=== PATIENT | male | born 1960 | race Caucasian/White ===

== ENCOUNTER 2020-02-03 09:13 | Outpatient (REF) | payer OTHER, SELFPAY ==
[2020-02-03 09:54] LABS: MANUAL DIFF FLAG NO
[2020-02-03 10:01] LABS: Basophils Absolute Auto 0.1 X10*3/uL (0.0-0.2); Basophils Percent Auto 0.7 % (0-2); Eosinophils Absolute Auto 0.3 X10*3/uL (0.0-0.4); Eosinophils Percent Auto 4.4 % (0-4); Hemoglobin 15.8 g/dl (14.0-18.0); Imm Gran Abs Auto 0.04 X10*3/uL (0.00-0.03); Imm Gran Pct Auto 0.6 % (0.0-0.4); Lymphocytes Absolute Auto 1.8 X10*3/uL (1.2-4.9); Lymphocytes Percent Auto 25.9 % (20-40); Mean Corpuscular HGB Conc 35.9 g/dl (31.0-36.0); Mean Corpuscular Hemoglobin 32.5 pg (27.0-33.0); Mean Corpuscular Volume 90.5 fL (80-98); Mean Platelet Volume 9.5 fL (9.4-12.4); Monocytes Absolute Auto 0.5 X10*3/uL (0.1-1.2); Neutrophils Absolute Auto 4.2 X10*3/uL (2.0-8.3); Neutrophils Percent Auto 61.4 % (45-73); Platelet Count 219 X10*3/uL (160-400); Red Blood Count 4.86 X10*6/uL (4.60-5.80); Red Cell Distribution Width 11.8 % (11.0-16.0); White Blood Count 6.8 X10*3/uL (4.8-10.8)
[2020-02-03 10:29] LABS: Alanine Aminotransferase 54 U/L (0-40); Albumin Level 4.8 g/dL (3.5-5.0); Alkaline Phosphatase 72 U/L (39-117); Aspartate Amino Transferase 32 U/L (5-37); Blood Urea Nitrogen 13 mg/dL (9-16); Cholesterol 180 mg/dL; Estimated Glomerular Filt Rate > 60; Glucose Fasting 97 mg/dL (60-99); HDL Cholesterol 40 mg/dL; LDL Cholesterol Calculated 104 mg/dl; Total Protein 7.2 g/dL (6.5-8.0); Triglycerides 183 mg/dL
[2020-02-03 10:39] LABS: Anion Gap 14 (12-20); Calcium 9.5 mg/dL (8.4-10.2); Carbon Dioxide 25 mmol/L (22-29); Chloride 106 mmol/L (96-108); Potassium 5.7 mmol/l (3.3-5.1); Sodium 139 mmol/L (135-145)
[2020-02-03 10:46] LABS: Prostate Specific Antigen 0.38 ng/mL (<0.05-4.0)
== END 2020-02-03 09:14 | disposition home or self-care (01) ==
LOC: HO.LAB 09:13
PROVIDERS: PCP Internal Medicine; Visit Provider Internal Medicine
DX: Z00.00 Encounter for general adult medical examination without abnormal findings (principal); Z12.5 Encounter for screening for malignant neoplasm of prostate
CPT/HCPCS: 36415; 80053; 80061; 84153; 85025

== ENCOUNTER 2020-02-15 08:12 | Outpatient (REF) | payer OTHER, SELFPAY ==
[2020-02-15 11:12] LABS: Anion Gap 12 (12-20); Blood Urea Nitrogen 15 mg/dL (9-16); Calcium 9.3 mg/dL (8.4-10.2); Carbon Dioxide 24 mmol/L (22-29); Chloride 107 mmol/L (96-108); Estimated Glomerular Filt Rate > 60; Glucose Random 94 mg/dL (60-115); Potassium 4.7 mmol/l (3.3-5.1); Sodium 138 mmol/L (135-145)
== END 2020-02-15 08:13 | disposition home or self-care (01) ==
LOC: HO.LAB 08:12
PROVIDERS: PCP Internal Medicine; Visit Provider Internal Medicine
DX: I10 Essential (primary) hypertension (principal); E87.5 Hyperkalemia
CPT/HCPCS: 80048

== ENCOUNTER 2020-10-10 08:25 | Outpatient (REF) | payer OTHER, SELFPAY ==
[2020-10-10 09:00] LABS: MANUAL DIFF FLAG NO
[2020-10-10 09:08] LABS: Basophils Absolute Auto 0.1 X10*3/uL (0.0-0.2); Basophils Percent Auto 0.7 % (0-2); Eosinophils Absolute Auto 0.6 X10*3/uL (0.0-0.4); Eosinophils Percent Auto 8.5 % (0-4); Hematocrit 44.3 % (42-52); Hemoglobin 15.8 g/dl (14.0-18.0); Imm Gran Abs Auto 0.04 X10*3/uL (0.00-0.03); Imm Gran Pct Auto 0.6 % (0.0-0.4); Lymphocytes Percent Auto 29.1 % (20-40); Mean Corpuscular HGB Conc 35.7 g/dl (31.0-36.0); Mean Corpuscular Hemoglobin 31.9 pg (27.0-33.0); Mean Corpuscular Volume 89.3 fL (80-98); Mean Platelet Volume 9.7 fL (9.4-12.4); Monocytes Absolute Auto 0.5 X10*3/uL (0.1-1.2); Monocytes Percent Auto 6.7 % (2-11); Neutrophils Absolute Auto 3.7 X10*3/uL (2.0-8.3); Neutrophils Percent Auto 54.4 % (45-73); Platelet Count 195 X10*3/uL (160-400); Red Blood Count 4.96 X10*6/uL (4.60-5.80); Red Cell Distribution Width 12.1 % (11.0-16.0); White Blood Count 6.7 X10*3/uL (4.8-10.8)
[2020-10-10 09:25] LABS: Alanine Aminotransferase 39 U/L (0-40); Albumin Level 4.8 g/dL (3.5-5.0); Alkaline Phosphatase 74 U/L (39-117); Anion Gap 12 (12-20); Aspartate Amino Transferase 33 U/L (5-37); Bilirubin Total 1.5 mg/dL (0.0-1.0); Blood Urea Nitrogen 15 mg/dL (9-16); Carbon Dioxide 27 mmol/L (22-29); Chloride 106 mmol/L (96-108); Estimated Glomerular Filt Rate > 60; Glucose Random 104 mg/dL (60-115); Potassium 5.2 mmol/L (3.3-5.1); Sodium 140 mmol/L (135-145); Total Protein 7.3 g/dL (6.5-8.0)
== END 2020-10-10 08:26 | disposition home or self-care (01) ==
LOC: HO.LAB 08:25
PROVIDERS: PCP Internal Medicine; Visit Provider Internal Medicine
DX: I10 Essential (primary) hypertension (principal); K21.9 Gastro-esophageal reflux disease without esophagitis; E78.5 Hyperlipidemia, unspecified
CPT/HCPCS: 36415; 80053; 85025

== ENCOUNTER 2020-12-26 09:02 | Outpatient (REF) | payer OTHER, SELFPAY ==
[2020-12-26 09:57] LABS: COVID-19 Test Positive (Negative)
== END 2020-12-26 09:03 | disposition home or self-care (01) ==
LOC: HO.LAB 09:02
PROVIDERS: Visit Provider Internal Medicine
DX: Z20.822 Contact with and (suspected) exposure to COVID-19 (principal)
CPT/HCPCS: 36415; 87635; C9803

== ENCOUNTER 2021-05-08 07:06 | Day surgery (SDC) | payer OTHER, SELFPAY ==
--- NOTE | 2021-05-07 14:21 | HO.ANESPROP2 ---
Documented by User: Rosa Isela Joseph NP 05/07/21 14:22 HPI - Anesthesia Eval Consult details Narrative: 60yo M for Colonoscopy [facility] Past Medical History Medical History GERD (gastroesophageal reflux disease) HTN (hypertension) Surgical History Surgical History Hx of colonoscopy Social History Social History Patient Tobacco Use Status: Never used Tobacco Have you been hit, kicked, punched, or otherwise hurt by someone within the past year? If so, by whom?: No Are you DNR?: No Advance Directives: No Advance Directives Information Provided: Yes Meds Allergies Allergy/AdvReac Type Severity Reaction Status Date / Time No Known Allergies Allergy Verified 05/07/21 08:05 Home Medications Medication Instructions Recorded Confirmed Last Taken Type lisinopril 5 mg tablet mg 05/07/21 05/07/21 05/08/21 History omeprazole magnesium 20 mg mg PO 05/07/21 05/07/21 Unknown History tablet,delayed release (Prilosec OTC) Exam Exam Date and Time: May 07, 2021 142 Assessment and Plan Assessment Anesthesia Assessment: Chart Reviewed Documented by User: Leslie Dalal MD 05/08/21 07:37 [facility] Past Medical History Medical History GERD (gastroesophageal reflux disease) HTN (hypertension) Family History Family history of problems with anesthesia: No Surgical History Surgical History Hx of colonoscopy History of Problems with Anesthesia: No Social History Social History Patient Tobacco Use Status: Never used Tobacco Have you been hit, kicked, punched, or otherwise hurt by someone within the past year? If so, by whom?: No Are you DNR?: No Advance Directives: No Advance Directives Information Provided: Yes Meds Allergies Allergy/AdvReac Type Severity Reaction Status Date / Time No Known Allergies Allergy Verified 05/07/21 08:05 Home Medications Medication Instructions Recorded Confirmed Last Taken Type lisinopril 5 mg tablet mg 05/07/21 05/07/21 05/08/21 History omeprazole magnesium 20 mg mg PO 05/07/21 05/07/21 Unknown History tablet,delayed release (Prilosec OTC) Exam Airway Mallampati Class: II TM Dist: >3cm Neck ROM: Full Heart: RRR Lungs: CTA Assessment and Plan Final Anesthetic Review Family History of Problems with Anesthesia: No History of Problems with Anesthesia: No NPO: Yes ASA Class: II Final Preanesthetic Review: No Changes in Pt Med Stat, Meds/Allgs Chart Reviewed, Consent Obtained/Reviewed and Anes Risks/Benef Reviewed Patient Risk: Low Procedure Risk: Low Anesthetic Plan Anesthetic Plan: MAC: Disposition: Standard PACU
[2021-05-08 07:10] VITALS: BP 137/88; PULSE 63; RESP 17; TEMP 36.6; O2SAT 97; BMI 26.6
[2021-05-08] MEDS: Lactated Ringers 1,000 ML 100 ML IVCONT (07:45)
--- NOTE | 2021-05-08 08:06 | MHC.SHP ---
Pre-Procedural Eval Section A Date of Service: 05/08/21 Section B Chief Complaint: Screening Details of Present Illness: see H&P no changes Relevant Family History (Specify if Yes): No Relevant Social History: None Present Medications: see Short Stay Collaborative assessment Medical History: No relevant PMH History of Previous Operations: No relevant previous surgery Allergies: Allergies Allergy/AdvReac Type Severity Reaction Status Date / Time No Known Allergies Allergy Verified 05/07/21 08:05 Review of Systems Sugical H&P ROS: Negative: Constitution, Cardiovascular, Respiratory, Neurological, Psychiatric, Hem-Onc, Allergic/Immunologic, Gastrointestinal, Genitourinary, Musculoskeletal, Integumentary, Endocrine and Eyes/Ears/Nose/Throat Exam Surgical H&P Exam: Normal: HEENT, Normal: Heart, Normal: Lungs, Normal: Extremities, Normal: Abdomen, Normal: Skin and Normal: Neurological Plan Diagnosis/Plan: Unchanged I have reviewed the history and physical and performed a pertinent physical examination on my patient. No changes have occurred unless specified.
--- NOTE | 2021-05-08 08:37 | PM.OP ---
Brief Operative Note Date of Service: 05/08/21 Pre-op diagnosis: screening Post-op diagnosis: same (colon polyp) Procedure: colonosocpy Surgeon: Oliverio Petersen Anesthesia: MAC Was an Reading Interventionist used for this Procedure?: No Estimated blood loss (mL): 2 Pathology: other (polyp 65 cm) Condition: stable Disposition: PACU
[2021-05-08 08:39] VITALS: BP 100/67; PULSE 72; RESP 20; TEMP 36.4; O2SAT 98
[2021-05-08 08:54] VITALS: BP 128/83; PULSE 66; RESP 17; TEMP 36.4; O2SAT 98
--- NOTE | 2021-05-08 09:13 | OP_ITS ---
SURGEON: Oliverio Petersen MD INDICATIONS: Colon cancer screening. PREOPERATIVE DIAGNOSIS: POSTOPERATIVE DIAGNOSIS: PROCEDURE PERFORMED: ESTIMATED BLOOD LOSS: COMPLICATIONS: ANESTHESIA: ASSISTANTS: SPECIMENS: PROCEDURE: Colonoscopy to the terminal ileum with biopsy. MEDICATIONS: Monitored anesthesia care. DESCRIPTION OF PROCEDURE: History and physical performed. The risks and benefits of the procedure were explained to the patient. Informed consent was obtained. The patient was placed in the left lateral decubitus position. A digital rectal exam was performed and it was found to be normal. The Olympus pediatric video colonoscope was introduced into the rectum and advanced to the cecum without difficulty. The cecum was identified by transillumination, palpation, and identification of the ileocecal valve. Examination was performed. The scope was removed. He tolerated the procedure well and was taken to Recovery in stable condition. FINDINGS: The terminal ileum was examined and appeared normal. The visualized colonic mucosa was normal. The quality of the prep was good. At 65 cm from the anal verge was a less than 5 mm sessile polyp, which was removed with biopsy forceps. No other polyps were identified. Retroflexed examination showed some small internal hemorrhoids. IMPRESSION: Colon polyp. RECOMMENDATIONS: Follow up the biopsy results. MD ASIA Mayen/RONY / [id number]
--- NOTE | 2021-05-08 12:51 | HO.POSTANES ---
Post Anesthesia Evaluation Post Anesthesia Evaluation Vital Signs: Vital Signs Temp Pulse Resp BP Pulse Ox 05/08/21 08:54 97.6 F 66 17 128/83 98 05/08/21 08:39 97.6 F 72 20 100/67 98 05/08/21 07:10 98 F 63 17 137/88 97 Anesthesia: Monitored Mental Status: Awake Pain Control: Satisfactory Nausea/Vomiting: None Hydration: Adequate Anesthesia-Related Issues: No Anes. Related Issues
== END 2021-05-08 09:23 | disposition home or self-care (01) ==
PROVIDERS: PCP Internal Medicine; Visit Provider Internal Medicine Gastroenterology
PROC: 0DJD8ZZ Inspection of Lower Intestinal Tract, Via Natural or Artificial Opening Endoscopic (ICD-10-PCS; CPT 45378; principal; 2021-05-08 08:10)
DX: Z12.11 Encounter for screening for malignant neoplasm of colon (principal); K63.5 Polyp of colon; K64.8 Other hemorrhoids; K21.9 Gastro-esophageal reflux disease without esophagitis; I10 Essential (primary) hypertension; J30.2 Other seasonal allergic rhinitis; Z79.899 Other long term (current) drug therapy
CPT/HCPCS: 45380; 88305

== ENCOUNTER 2022-03-05 09:21 | Outpatient (REF) | payer OTHER, SELFPAY ==
[2022-03-05 09:46] LABS: MANUAL DIFF FLAG NO
[2022-03-05 10:12] LABS: Basophils Absolute Auto 0.1 X10*3/uL (0.0-0.2); Basophils Percent Auto 1.1 % (0-2); Eosinophils Absolute Auto 0.3 X10*3/uL (0.0-0.4); Hemoglobin 16.3 g/dl (14.0-18.0); Imm Gran Abs Auto 0.02 X10*3/uL (0.00-0.03); Imm Gran Pct Auto 0.3 % (0.0-0.4); Lymphocytes Absolute Auto 1.9 X10*3/uL (1.2-4.9); Lymphocytes Percent Auto 30.2 % (20-40); Mean Corpuscular HGB Conc 35.4 g/dl (31.0-36.0); Mean Corpuscular Hemoglobin 32.5 pg (27.0-33.0); Mean Corpuscular Volume 91.6 fL (80.0-98.0); Monocytes Absolute Auto 0.5 X10*3/uL (0.1-1.2); Monocytes Percent Auto 7.3 % (2-11); Neutrophils Absolute Auto 3.6 x10*3/uL (2.0-8.3); Neutrophils Percent Auto 57.1 % (45-73); Platelet Count 207 X10*3/uL (160-400); Red Blood Count 5.02 X10*6/uL (4.60-5.80); Red Cell Distribution Width 11.9 % (11.0-16.0); White Blood Count 6.3 X10*3/uL (4.8-10.8)
[2022-03-05 10:59] LABS: Alanine Aminotransferase 53 U/L (0-40); Alkaline Phosphatase 74 U/L (39-117); Anion Gap 16 (12-20); Aspartate Amino Transferase 37 U/L (5-37); Bilirubin Total 0.8 mg/dL (0.0-1.0); Blood Urea Nitrogen 15 mg/dL (9-16); Calcium 9.9 mg/dL (8.4-10.2); Carbon Dioxide 22 mmol/L (22-29); Chloride 105 mmol/L (96-108); Cholesterol 203 mg/dL; Estimated Glomerular Filt Rate > 60; Glucose Fasting 102 mg/dL (60-99); HDL Cholesterol 42 mg/dL; LDL Cholesterol Calculated 124 mg/dl; Sodium 138 mmol/L (135-145); Total Protein 7.5 g/dL (6.5-8.0); Triglycerides 186 mg/dL
[2022-03-05 11:02] LABS: Prostate Specific Antigen 0.59 ng/mL (<0.05-4.0)
== END 2022-03-05 09:22 | disposition home or self-care (01) ==
LOC: HO.LAB 09:21
PROVIDERS: PCP Internal Medicine; Visit Provider Internal Medicine
DX: Z00.00 Encounter for general adult medical examination without abnormal findings (principal); Z12.5 Encounter for screening for malignant neoplasm of prostate
CPT/HCPCS: 36415; 80053; 80061; 84153; 85025

== ENCOUNTER 2022-03-29 12:52 | Outpatient (REF) | payer OTHER, SELFPAY ==
--- NOTE | ~2022-03-29 | XR_ITS ---
EXAMINATION: XR HIP, RIGHT CLINICAL INFORMATION: Right hip pain. COMPARISON: 02/27/2015 TECHNIQUE: Two views of the right hip. FINDINGS: There is no evidence of acute fracture or dislocation of the right hip. The right hip joint space is maintained. There is a similar appearance to study of 03/01/2015. Calcification is seen about the superior lateral acetabulum which may represent secondary ossification center or possibly calcified labrum. No destructive bony lesions identified. No evidence of femoral head collapse. XR/XR hip RT min 2V IMPRESSION: Stable appearance of the right hip compared to study of 03/01/2015 without significant joint space narrowing.
== END 2022-03-29 12:53 | disposition home or self-care (01) ==
LOC: HO.XRAY 12:52
PROVIDERS: PCP Internal Medicine; Visit Provider Internal Medicine
DX: M25.551 Pain in right hip (principal)
CPT/HCPCS: 73502

== ENCOUNTER 2022-05-17 14:49 | Outpatient (REF) | payer OTHER, SELFPAY ==
--- NOTE | ~2022-05-17 | XR_ITS ---
EXAMINATION: XR HIP, RIGHT CLINICAL INFORMATION: Pain. COMPARISON: Radiograph of the right hip 03/29/2022. TECHNIQUE: Two views of the right hip. FINDINGS: No acute fracture or malalignment. Stable well-corticated calcific/ossific bodies adjacent to the lateral superior right acetabulum. Mild to moderate bilateral degenerative osteophyte arthritis in the hips with joint space narrowing and subcortical sclerosis. SI joints are symmetric. Pubic symphysis is maintained. Pelvic phleboliths are noted. XR/XR hip RT w PEL1V IMPRESSION: 1. No acute fracture or malalignment. 2. Unchanged prominent calcific/ossific bodies in the right superolateral acetabulum. 3. Mild to moderate osteoarthritis of both hips.
== END 2022-05-17 14:50 | disposition home or self-care (01) ==
LOC: HO.HOSX 14:49
PROVIDERS: Visit Provider Physician Assistant
DX: M16.11 Unilateral primary osteoarthritis, right hip (principal)
CPT/HCPCS: 73502

== ENCOUNTER → 2022-07-03 14:54 | Outpatient (BNVA) | payer OTHER, SELFPAY | PROVIDERS: PCP Internal Medicine; Visit Provider Anesthesiology | DX: Z13.89 Encounter for screening for other disorder (principal) ==

== ENCOUNTER 2022-07-22 17:00 | Outpatient (RCR) | payer OTHER, SELFPAY ==
--- NOTE | 2022-08-12 15:43 | MHC.PT.DC ---
[facility] [place] Office [place] [facility] [place] Office [address] [phone] F: [phone] F: [phone] F: [phone] F: [phone] Physical Therapy Discharge Report Diagnosis: RIGHT HIP AND LOW BACK PAIN Date of Surgery: N/A Date of Evaluation: 06/18/22 Date of Discharge: 07/23/22 Treatments to Date: 4 Cancellations to Date: 5 No Shows to Date: 0 Discharge Status: Visit Non-compliance Discharge Summary: AARON CANCELLED 5 VISITS, INCLUDING LAST SCHEDULED VISIT WITH PT. HE IS SCHEDULED FOR CONSULT WITH PAIN MANAGEMENT. Electronically signed by: CASSI SONG PT, DPT Please sign and return to therapist. Thank you for your referral.
== END 2022-08-12 15:43 | disposition home or self-care (01) ==
LOC: HO.PT 17:00
PROVIDERS: PCP Internal Medicine; Visit Provider Physician Assistant
DX: M16.11 Unilateral primary osteoarthritis, right hip (principal)
CPT/HCPCS: 97110; 97161

== ENCOUNTER 2022-08-13 05:57 | Outpatient (REF) | payer OTHER, SELFPAY ==
--- NOTE | ~2022-08-13 | FL_ITS ---
EXAMINATION: XR FLUOROSCOPY WITH IMAGES CLINICAL INFORMATION: Right hip osteoarthritis. COMPARISON: 05/17/2022. TECHNIQUE: Fluoroscopy Supervised By: Dr. Isaak Polk. Fluoroscopy Time: 0.2 minutes. Cumulative Dose: 5.96 mGy. DAP: 1.62 Gycm2. Images: 3. FINDINGS: 3 views demonstrate needle overlying the superior aspect of the right hip joint with some contrast seen between what appears to be calcified labral tear in a superior acetabulum. FL/FL guidance in treatment room IMPRESSION: Intraoperative fluoroscopy for pain management procedure.
== END 2022-08-13 05:58 | disposition home or self-care (01) ==
LOC: CF 05:57
PROVIDERS: Visit Provider Anesthesiology
DX: M16.11 Unilateral primary osteoarthritis, right hip (principal)
CPT/HCPCS: 20610; J3301

== ENCOUNTER → 2022-09-25 14:57 | Outpatient (BNVA) | payer OTHER, SELFPAY | PROVIDERS: PCP Internal Medicine; Visit Provider Anesthesiology ==

== ENCOUNTER 2023-01-30 08:37 | Outpatient (REF) | payer OTHER, SELFPAY ==
[2023-01-30 08:53] LABS: MANUAL DIFF FLAG NO
[2023-01-30 09:23] LABS: Basophils Absolute Auto 0.1 X10*3/uL (0.0-0.2); Basophils Percent Auto 1.2 % (0-2); Eosinophils Absolute Auto 0.2 X10*3/uL (0.0-0.4); Eosinophils Percent Auto 2.7 % (0-4); Hematocrit 49.3 % (42.0-52.0); Hemoglobin 17.1 g/dl (14.0-18.0); Imm Gran Abs Auto 0.04 X10*3/uL (0.00-0.03); Imm Gran Pct Auto 0.5 % (0.0-0.4); Lymphocytes Absolute Auto 1.4 X10*3/uL (1.2-4.9); Lymphocytes Percent Auto 18.9 % (20-40); Mean Corpuscular HGB Conc 34.7 g/dl (31.0-36.0); Mean Corpuscular Hemoglobin 32.1 pg (27.0-33.0); Mean Corpuscular Volume 92.7 fL (80.0-98.0); Mean Platelet Volume 10.1 fL (9.4-12.4); Monocytes Absolute Auto 0.5 X10*3/uL (0.1-1.2); Monocytes Percent Auto 7.2 % (2-11); Neutrophils Absolute Auto 5.2 x10*3/uL (2.0-8.3); Neutrophils Percent Auto 69.5 % (45-73); Platelet Count 224 X10*3/uL (160-400); Red Blood Count 5.32 X10*6/uL (4.60-5.80); Red Cell Distribution Width 12.2 % (11.0-16.0); White Blood Count 7.5 X10*3/uL (4.8-10.8)
[2023-01-30 09:32] LABS: Alanine Aminotransferase 44 U/L (0-40); Albumin Level 4.8 g/dL (3.5-5.0); Alkaline Phosphatase 73 U/L (39-117); Anion Gap 11 (12-20); Aspartate Amino Transferase 30 U/L (5-37); Bilirubin Total 0.9 mg/dL (0.0-1.0); Blood Urea Nitrogen 15 mg/dL (9-16); Calcium 9.9 mg/dL (8.4-10.2); Carbon Dioxide 24 mmol/L (22-29); Chloride 108 mmol/L (96-108); Estimated Glomerular Filt Rate > 60; Glucose Fasting 110 mg/dL (60-99); Potassium 5.3 mmol/L (3.3-5.1); Sodium 138 mmol/L (135-145); Total Protein 7.5 g/dL (6.5-8.0)
[2023-01-30 09:55] LABS: Prostate Specific Antigen Scr 0.72 ng/mL (<0.05-4.0)
== END 2023-01-30 08:38 | disposition home or self-care (01) ==
LOC: HO.LAB 08:37
PROVIDERS: PCP Internal Medicine; Visit Provider Internal Medicine
DX: Z12.5 Encounter for screening for malignant neoplasm of prostate (principal); I10 Essential (primary) hypertension; M54.9 Dorsalgia, unspecified; K21.9 Gastro-esophageal reflux disease without esophagitis; R35.1 Nocturia
CPT/HCPCS: 36415; 80053; 84153; 85025

== ENCOUNTER 2023-02-04 07:05 | Outpatient (REF) | payer OTHER, SELFPAY ==
[2023-02-04 07:48] LABS: Estimated Average Glucose 94 mg/dL; Hemoglobin A1c % 4.9 % (<6.0)
[2023-02-04 09:06] LABS: Anion Gap 12 (12-20); Blood Urea Nitrogen 16 mg/dL (9-16); Calcium 9.4 mg/dL (8.4-10.2); Carbon Dioxide 22 mmol/L (22-29); Chloride 109 mmol/L (96-108); Cholesterol 202 mg/dL (<200); Estimated Glomerular Filt Rate > 60; Glucose Random 104 mg/dL (60-115); Magnesium 2.3 mg/dL (1.6-2.6); Potassium 4.7 mmol/L (3.3-5.1); Sodium 138 mmol/L (135-145)
[2023-02-04 09:20] LABS: Free T4 (Free Thyroxine) 0.81 ng/dL (0.71-1.85)
== END 2023-02-04 07:06 | disposition home or self-care (01) ==
LOC: HO.LAB 07:05
PROVIDERS: PCP Internal Medicine; Visit Provider Internal Medicine
DX: I48.91 Unspecified atrial fibrillation (principal); I10 Essential (primary) hypertension; K21.9 Gastro-esophageal reflux disease without esophagitis; R73.9 Hyperglycemia, unspecified
CPT/HCPCS: 36415; 80048; 82465; 83036; 83735; 84439; 84443

== ENCOUNTER 2023-02-05 08:52 | Outpatient (AMB) | payer OTHER, SELFPAY ==
--- NOTE | 2023-02-05 09:00 | A.OFFVIS_ITS ---
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 However he remains in good functional capacity and walks every day [address] 18 hole golf and does other forms of exercise as although with symptoms of shortness of breath and fatigue. However more recently noticed some palpitation for couple weeks and recently had an office visit with you on a general annual visit at which time was noted to have irregular pulse and subsequent EKG confirming findings of atrial fibrillation he was referred here. He has been started on oral anticoagulation with Eliquis 5 mg b.i.d., started 2 days ago. He has longstanding history of hypertension which as per him is well managed. He does live with stressful life. However he denies any sleep symptoms although may have poor sleep pattern. Denies any orthopnea, PND, leg edema. Denies any chest pain. Denies any lightheadedness, syncope. No bleeding issues or neurologic events. 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 Review of Systems Const Denies chills, Denies daytime sleepiness, Denies fatigue, Denies fever(s), Den ies frequent falls, Denies poor appetite, Denies snoring, Denies stops breathing during sleep, Denies weakness, Denies weight gain and Denies weight loss Eyes Denies loss of vision ENT Denies dizziness and Denies hearing loss Card Denies chest pain, Denies claudication, Denies leg edema, Denies lightheadedness, Denies palpitations, Denies dyspnea, Denies dyspnea on exertion and Denies orthopnea Resp Denies cough, Denies excessive phlegm production, Denies dyspnea, Denies dyspnea on exertion, Denies snoring and Denies wheezing GI Denies abdominal pain, Denies hematochezia, Denies change in bowel habits, Denies nausea and Denies vomiting Denies dysuria and Denies urinary frequency Musc Denies arthralgias, Denies muscle weakness, Denies numbness and Denies other (frequent falls) Skin/Breast Denies nail changes and Denies rash Neuro Denies Abnormal speech present, Denies dizziness, Denies frequent falls, Denies loss of vision, Denies memory loss, Denies numbness and Denies weakness Psych Denies depression and Denies memory loss Endo Denies fatigue and Denies palpitations Elijah/Lymph Reports easy bruising and Reports other (anemia) Aller/Immun Denies wheezing Physical Exam Vital Signs: Last Vital Signs Pulse 72 02/05/23 09:01 BP 120/80 02/05/23 09:01 BMI result Body Mass Index 26.9 Const General: cooperative, comfortable, no acute distress, well developed, alert, awake, Physically active and well groomed Nutritional Appearance: average body habitus and well nourished Orientation/consciousness: patient oriented x3 Limitations: no limitations HEENT Head: Yes normocephalic and Yes atraumatic Neck Neck: Yes trachea midline, Yes supple and Yes no JVD Resp Effort & Inspection: normal respiratory effort Auscultation: clear to auscultation bilaterally Cardio Jugular venous distension: no JVD Rhythm: abnormal rhythm irregularly irregular Heart sounds: S1 normal heart sound present, S2 normal heart sound present, no click, no gallops, no murmurs and no rubs GI Auscultation: normal bowel sounds Skin General skin exam: no rashes or lesions noted Neuro General: patient oriented x3 and no focal motor deficits Speech: No Abnormal speech present Extrem General: Yes no clubbing, cyanosis or edema Office Procedures EKG Details: EKG shows atrial fibrillation at 72 beats per minute [id number], Complete Assessment & Plan Assessment & Plan (1) Persistent atrial fibrillation: Code(s): I48.19 - Other persistent atrial fibrillation Plan: Persistent rate control atrial fibrillation, recently detected most likely need new onset with symptoms of exertional shortness of breath fatigue although the symptoms have been present for many years. He has no signs or symptoms of congestive heart failure. His TSH is within normal limits. He has been appropriately started on oral anticoagulation therapy with Eliquis. Most likely cause of atrial fibrillation is hypertension related left atrial changes. Will need to obtain echocardiogram to assess for the same. The possibility includes undiagnosed sleep apnea. Need to do home sleep study for the same. Will also suggest a Holter monitor for adequate rate control. I had a very long discussion about pathophysiology of atrial fibrillation management. Although recent data suggest in new onset recent persistent atrial fibrillation should pursue rhythm control approach as much as possible especially given his age and his activity level to reduce long-term risk of cardiovascular complications including congestive heart failure. ST use of antiarrhythmic drug will be decided based on the findings on echocardiogram, if he has significant left atrial enlargement will probably prescribed antiarrhythmic drug prior to synchronized cardioversion. We discussed about synchronized cardioversion details including risk, benefits, alternatives. He understands agrees. Given unknown duration of atrial fibrillation will wait at least 3-3 and half weeks prior to performing synchronized cardioversion. He understands management well. Will follow up in the clinic after synchronized cardioversion. Thank you for allowing me to partake in his care Coding Level of Care Code New Pt Level 4 (77987) Diagnoses Persistent atrial fibrillation I48.19 CPT Codes EKG - CPT: 36195-[id number], Complete ([id number])
[2023-02-05 09:01] VITALS: BP 120/80; PULSE 72; BMI 26.9
== END 2023-02-05 09:38 | disposition home or self-care (01) ==
PROVIDERS: PCP Internal Medicine; Visit Provider Internal Medicine Cardiovascular Disease
DX: I48.19 Other persistent atrial fibrillation (principal)
CPT/HCPCS: 93010; 99204

== ENCOUNTER → 2023-02-05 08:52 | Outpatient (BNVA) | payer OTHER, SELFPAY | PROVIDERS: PCP Internal Medicine; Visit Provider Internal Medicine Cardiovascular Disease | DX: I48.19 Other persistent atrial fibrillation (principal) | CPT/HCPCS: 93005 ==

== ENCOUNTER → 2023-02-18 08:56 | Outpatient (REF) | payer OTHER, SELFPAY ==
--- NOTE | 2023-02-18 09:03 | CA_ITS ---
Transthoracic Echocardiogram Patient (Last, First, Middle): Ga Velásquez A Gender: Male Date of : 1960 Age: 62 Procedure Date: 02/18/2023 Procedure Type: Transthoracic Echocardiogram Location: OP Height: 170.18 cm Weight: 77.11 kg BSA: 1.89 m2 Heart Rate: bpm BP: 110 / 75 mmHg Power Plant Engineer: INÉS Referring MD: Mariano Baldwin MD Symptoms: I48.19 - Other persistent atrial fibrillation Study Quality: Fair ECG Rhythm: Atrial Fibrillation Conclusions: - The left ventricular systolic function is normal. The calculated ejection fraction is 67% by biplane method - The left atrium is severely dilated. - There is severe calcification of the aortic valve. There is mild aortic valve stenosis. Findings Left Ventricle Normal left ventricular cavity size. There is severely increased left ventricular wall thickness. The left ventricular systolic function is normal. The calculated ejection fraction is 67% by biplane method. There is no evidence of regional wall motion abnormalities. Diastolic function is indeterminate on the basis of available data. Right Ventricle Normal right ventricular cavity size and systolic function. Atria The left atrium is severely dilated. The right atrium is normal in size. Aortic Valve There is severe calcification of the aortic valve. There is mild aortic valve stenosis. The peak aortic velocity is 2.26 m/s with a calculated peak gradient of 20 mmHg. The mean gradient is 11 mmHg. The aortic valve area is 2.43 cm2. Mitral Valve There is mild anterior mitral leaflet thickening. There is mild mitral annular calcification. There is no mitral valve stenosis. Pulmonic Valve The pulmonic valve is likely normal. Tricuspid Valve Normal tricuspid valve structure. There is trace tricuspid valve regurgitation. There is no evidence of pulmonary hypertension. Great Vessels The asc aorta is normal in size. Venous The inferior vena cava is normal in size and collapses greater than 50% with inspiration. Pericardium/Pleural There is no evidence of pericardial effusion. Prior Study Comparison No prior study available for comparison. Measurements 2D Linear Measurements IVSd: 1.48 0.6-0.9/0.6-1.0 cm LVIDd: 3.11 3.9-5.3/4.2-5.9 cm LVIDd Index: 1.65 2.4-3.2/2.2-3.1 cm/m2 LVIDs: 1.94 2.0-3.6 cm LVPWd: 1.47 0.7-1.1 cm LA Diam: 4.00 2.7-3.8/3.0-4.0 cm LAIDs Index: 2.12 1.5-2.3 cm/m2 LV Mass: 200.16 67-162/88-224 g LV Mass Index: 105.91 43-95/49-115 g/m2 LVOT Diam: 2.20 3.0+(-)1.3 cm 2D Systolic Function EF 4C: 64.90 >55% EF 2C: 70.60 >55% EF BiP: 66.90 >55% Mitral Valve MV Pk E: 1.21 MV Decel Time: 182.00 E'Lateral: 10.90 E'Medial: 8.16 E/E' Med: 14.80 E/E' Lat: 11.10 PHT: 53.00 MVA PHT: 4.15 Decel Dixie: 6.68 Aortic Valve AoV Pk Gregorio: 2.26 AoV Mn Gregorio: 1.51 AoV VTI: 0.42 AoV Pk Grad: 20.00 Aov Mn Grad: 11.00 ESTHELA Cont.VTI: 2.43 LVOT LVOT Pk Gregorio: 1.17 LVOT Mn Gregorio: 0.78 LVOT VTI: 0.27 LVOT Pk Grad: 5.00 LVOT Mn Grad: 3.00 LVOT Diam: 2.20 LVOT Area: 3.80 Diastolic Function MV Pk E: 1.21 E'Medial: 8.16 E/E' Med: 14.80 E' Laterial: 10.90 E/E' Lat: 11.10 Right Ventricle TAPSE (mm): 20.40 TVS' Gregorio: 15.10 Tricuspid Valve RA Press: 3.00 Great Vessels Aorta Sinus of Valsalva: 3.03 2.0-3.5 cm Ao Asc: 3.10 2.1-3.4 cm Updated in Other Vendor System with Status of Final Thai Delcid MD electronically signed on 02/20/2023 3:39:44 PM with status of Final
--- NOTE | 2023-02-18 09:03 | HM_ITS ---
Conclusion: 1. Patient was monitored for total period of 2 days and 23 hours 2. Baseline was atrial fibrillation with average heart of 79 beats per minute with adequate rate control 3. Occasional PVCs noted 4. No significant pauses noted 5. No patient reported events MTDD
== END ==
LOC: HO.CARD 08:56
PROVIDERS: PCP Internal Medicine; Visit Provider Internal Medicine Cardiovascular Disease
DX: I48.19 Other persistent atrial fibrillation (principal)
CPT/HCPCS: 93242; 93306

== ENCOUNTER → 2023-02-18 09:03 | Outpatient (BNV) | payer OTHER, SELFPAY | PROVIDERS: PCP Internal Medicine; Visit Provider Internal Medicine | DX: I48.19 Other persistent atrial fibrillation (principal) | CPT/HCPCS: 93244; 93306 ==

== ENCOUNTER 2023-02-28 12:48 | Day surgery (SDC) | payer OTHER, SELFPAY ==
[2023-02-26 14:54] VITALS: BMI 26.9
[2023-02-28 13:06] VITALS: BMI 25.8
[2023-02-28 13:08] VITALS: BP 126/88; PULSE 93; RESP 16; TEMP 36.6; O2SAT 98
[2023-02-28] MEDS: Lactated Ringers 1,000 ML 50 ML IVCONT (13:26)
--- NOTE | 2023-02-28 13:30 | P.CONAN_ITS ---
Documented by User: Rosa Isela Joseph NP 02/26/23 14:43 HPI - Anesthesia Eval Consult details Narrative: 62yo M for Cardioversion Eliquis for afib PMFSH Active Problems Active Problems: All Active Problems (Updated 02/05/23 @ 09:36 by Mariano Baldwin MD) Persistent atrial fibrillation (Acute) Osteoarthritis of right hip (Acute) Past Medical History Medical History GERD (gastroesophageal reflux disease) HTN (hypertension) Family History Family history of problems with anesthesia: No Surgical History Surgical History Hx of colonoscopy History of Problems with Anesthesia: No Social History Social History Alcohol intake: former Patient Tobacco Use Status: Never used Tobacco Use of substances other than those prescribed or required for medical reasons: Yes Substance Use Frequency: Chronic Longstanding Are you DNR?: No Advance Directives: No Advance Directives Information Provided: Yes Current occupational status: employed 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 The calculated ejection fraction is 67% by biplane method - The left atrium is severely dilated. - There is severe calcification of the aortic valve. There is mild aortic valve stenosis. EKG 02/2023 atrial fibrillation at 72 beats per minute Assessment and Plan Assessment Anesthesia Assessment: Chart Reviewed Final Anesthetic Review Family History of Problems with Anesthesia: No History of Problems with Anesthesia: No Documented by User: Sara Maddox DO 02/28/23 13:38 [facility] Past Medical History Medical History GERD (gastroesophageal reflux disease) HTN (hypertension) Family History Family history of problems with anesthesia: No Surgical History Surgical History Hx of colonoscopy History of Problems with Anesthesia: No Social History Social History Alcohol intake: former Patient Tobacco Use Status: Never used Tobacco Use of substances other than those prescribed or required for medical reasons: Yes Substance Use Frequency: Chronic Longstanding Are you DNR?: No Advance Directives: No Advance Directives Information Provided: Yes Current occupational status: employed 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 Meds Allergies Allergy/AdvReac Type Severity Reaction Status Date / Time No Known Allergies Allergy Verified 02/28/23 12:58 Home Medications Medication Instructions Recorded Confirmed Last Taken Type losartan 100 mg tablet 100 mg PO DAILY 08/13/22 02/28/23 02/28/23 History apixaban 5 mg tablet (Eliquis) 5 mg PO BID 02/05/23 02/28/23 02/28/23 History Exam Exam Date and Time: February 28, 2023 1330 Height,Weight and Vital Signs: Vital Signs Temperature 97.9 F 02/28/23 13:08 Pulse Rate 93 02/28/23 13:08 Respiratory Rate 16 02/28/23 13:08 Blood Pressure 126/88 02/28/23 13:08 Pulse Oximetry 98 02/28/23 13:08 Oxygen Delivery Method Room Air 02/28/23 13:08 Temperature 97.9 F 02/28/23 13:08 Pulse Rate 93 02/28/23 13:08 Respiratory Rate 16 02/28/23 13:08 Blood Pressure 126/88 02/28/23 13:08 Pulse Oximetry 98 02/28/23 13:08 Oxygen Delivery Method Room Air 02/28/23 13:08 Height 5 ft 7 in Weight 74.843 kg Airway Mallampati Class: II TM Dist: >3cm Neck ROM: Full Loose/Missing/Broken Teeth: No (patient denies) Heart: S1S2 Lungs: CTAB Assessment and Plan Final Anesthetic Review Family History of Problems with Anesthesia: No History of Problems with Anesthesia: No NPO: Yes ASA Class: II Final Preanesthetic Review: No Changes in Pt Med Stat, Meds/Allgs Chart Reviewed, Consent Obtained/Reviewed and Anes Risks/Benef Reviewed Patient Risk: Low Procedure Risk: Low Anesthetic Plan Anesthetic Plan: MAC: and Agree w/ Assess. and Plan Disposition: Standard PACU
--- NOTE | 2023-02-28 13:38 | MHC.SHP ---
Pre-Procedural Eval Section A Date of Service: 02/28/23 The patient is an INPATIENT: No Changes since office visit: Yes Changes in Medication; No Cold of Flu in the past 2 weeks, No New Medical Problems and No Patient answered all questions The History & Physical has been completed within 30 days and I have reviewed it.: Yes Section B Chief Complaint: Other persistent atrial fibrillation Allergies: Allergies Allergy/AdvReac Type Severity Reaction Status Date / Time No Known Allergies Allergy Verified 02/28/23 12:58 Plan I have reviewed the history and physical and performed a pertinent physical examination on my patient. No changes have occurred unless specified. Time Spent With Patient Time: Total time managing care of this patient today ____ minutes.
--- NOTE | 2023-02-28 13:40 | ECG_ITS ---
Test Reason : s/p cardioversion Blood Pressure : / mmHG Vent. Rate : 076 BPM Atrial Rate : 076 BPM P-R Int : 268 ms QRS Dur : 076 ms QT Int : 372 ms P-R-T Axes : 014 -06 -05 degrees QTc Int : 418 ms Sinus rhythm with 1st degree A-V block Nonspecific T wave abnormality Inferior leads Abnormal ECG No previous ECGs available Referred By: Mariano Baldwin Electronically Signed By:KENYA VÁZQUEZ MD
[2023-02-28 13:45] VITALS: BP 110/55; PULSE 77; RESP 20; TEMP 36.6; O2SAT 97
--- NOTE | 2023-02-28 13:48 | HO.CARDIVERS ---
Cardioversion Procedure Note Cardioversion Date of Procedure: Today Ordering Provider: myself Performing Provider: myself Indication for Procedure: new onset persistent atrial fibrillation Pre-Op Diagnosis: same Post-Op Diagnosis: normal sinus rhythm Performed with Transesophageal Echo: No History: see my office note Consent: Verbal and Written consent was obtained from the patient before starting and after confirming oral anticoagulation and antiarrhythmic use. The patient was made aware of the risk of synchronized cardioversion including benefits and alternatives Procedure: After consent obtained, cardioversion pads were attached in AP configuration and the patient was sedated by the anesthesia team. Once adequate sedation achieved, patient was delivered 200 joules of biphasic synchronized energy in anteroposterior configuration Complications: none Impression: normal sinus rhythm Recommendations: 1. 12 lead EKG 2. Continue Multaq and oral anticoagulation with Xarelto 3. Follow up in the office in few weeks
[2023-02-28 14:00] VITALS: BP 113/71; PULSE 74; RESP 20; O2SAT 95
[2023-02-28 14:15] VITALS: BP 109/74; PULSE 74; RESP 20; TEMP 36.6; O2SAT 95
== END 2023-02-28 14:55 | disposition home or self-care (01) ==
PROVIDERS: PCP Internal Medicine; Visit Provider Internal Medicine Cardiovascular Disease
PROC: 5A2204Z Restoration of Cardiac Rhythm, Single (ICD-10-PCS; principal; 2023-02-28 14:30)
DX: I48.19 Other persistent atrial fibrillation (principal); Z79.01 Long term (current) use of anticoagulants; I10 Essential (primary) hypertension; Z79.899 Other long term (current) drug therapy; K21.9 Gastro-esophageal reflux disease without esophagitis
CPT/HCPCS: 92960; 93005

== ENCOUNTER → 2023-02-28 12:48 | Outpatient (BNV) | payer OTHER, SELFPAY | PROVIDERS: PCP Internal Medicine; Visit Provider Internal Medicine Cardiovascular Disease | DX: I48.19 Other persistent atrial fibrillation (principal) | CPT/HCPCS: 92960 ==

== ENCOUNTER → 2023-03-17 13:57 | Outpatient (REF) | payer OTHER, SELFPAY | LOC: HO.SL 13:57 | PROVIDERS: PCP Internal Medicine; Visit Provider Internal Medicine Cardiovascular Disease | DX: I48.19 Other persistent atrial fibrillation (principal); R40.0 Somnolence; R06.83 Snoring | CPT/HCPCS: 95806 ==

== ENCOUNTER → 2023-03-17 14:16 | Outpatient (BNV) | payer OTHER, SELFPAY | PROVIDERS: PCP Internal Medicine; Visit Provider Internal Medicine | DX: R06.83 Snoring (principal) | CPT/HCPCS: 95806 ==

== ENCOUNTER 2023-04-01 15:16 | Outpatient (AMB) | payer OTHER, SELFPAY ==
[2023-04-01 15:30] VITALS: BP 136/82; PULSE 67; BMI 26.2
--- NOTE | 2023-04-01 15:30 | MHC.OFFVIS ---
Intake Vital Signs 04/01/23 15:30 Height 5 ft 7 in Weight 167 lb 8.821 oz BMI 26.2 BP 136/82 Blood Pressure Location Lt brachial Position Sitting Pulse 67 Intake Visit Reasons: 1 mth s/p cvr Intake Note: 1 month follow-up post cardioversion feeling good Manager Adobe Required: No Allergies No Known Allergies Allergy (Verified 02/28/23 12:58) Medication List - Last Reconciled 04/01/23 by Mariano Baldwin MD apixaban (Eliquis) 5 mg PO BID dronedarone (Multaq) 400 mg PO BID losartan 100 mg PO DAILY HPI HPI Comments History of Present Illness Details Ga comes for follow-up after cardioversion. Unfortunately noted to be in atrial fibrillation again today. He does not notice any significant symptoms but says after 7 days of being in normal rhythm in notice irregular heartbeat. Did not report to the office. Denies any worsening shortness of breath. He has continued to take Multaq although he says his symptoms of palpitations have been not that apparent to him. Denies any orthopnea, PND, leg edema. No lightheadedness, syncope. No bleeding issues or neurologic events. His sleep study is negative for sleep apnea. He said since we last met he has improved his lifestyle including reduce his alcohol intake. 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 Review of Systems Const Denies chills, Denies fatigue, Denies fever(s), Denies frequent falls, Denies weakness, Denies weight gain and Denies weight loss ENT Denies dizziness Card Denies chest pain, Denies leg edema, Denies lightheadedness, Denies palpitations, Denies dyspnea, Denies dyspnea on exertion, Denies orthopnea and Denies other (loss of consciousness) Resp Denies cough, Denies dyspnea and Denies dyspnea on exertion GI Denies hematochezia and Denies change in stool character Musc Denies abnormal gait, Denies muscle weakness, Denies numbness, Denies radiating pain into limb and Denies tingling Neuro Denies Abnormal speech present, Denies abnormal gait, Denies dizziness, Denies frequent falls, Denies numbness, Denies tingling and Denies weakness Endo Denies fatigue and Denies palpitations Physical Exam Vital Signs: Last Vital Signs Pulse 67 04/01/23 15:30 BP 136/82 04/01/23 15:30 BMI result Body Mass Index 26.2 Const General: cooperative, comfortable, no acute distress, well developed, alert, awake, Physically active and well groomed Nutritional Appearance: average body habitus and well nourished Orientation/consciousness: patient oriented x3 Limitations: no limitations HEENT Head: Yes normocephalic and Yes atraumatic Neck Neck: Yes trachea midline, Yes supple and Yes no JVD Resp Effort & Inspection: normal respiratory effort Auscultation: clear to auscultation bilaterally Cardio Jugular venous distension: no JVD Rhythm: abnormal rhythm irregularly irregular Heart sounds: S1 normal heart sound present, S2 normal heart sound present, no click, no gallops, no murmurs and no rubs GI Auscultation: normal bowel sounds Skin General skin exam: no rashes or lesions noted Neuro General: patient oriented x3 and no focal motor deficits Speech: No Abnormal speech present Extrem General: Yes no clubbing, cyanosis or edema Office Procedures EKG Details: EKG shows atrial fibrillation with right axis deviation [id number], Complete Assessment & Plan Assessment & Plan (1) Persistent atrial fibrillation: Code(s): I48.19 - Other persistent atrial fibrillation Plan: Recurrent persistent atrial fibrillation with significant left atrial enlargement with underlying history of hypertension. Patient not having significant symptoms and says symptoms of palpitation improved. Although this is probably related better rate control with Multaq. Multaq is ineffective therapy and this was discussed with him. He probably has resistant atrial fibrillation given his significant left atrial enlargement and may have will more long-standing atrial fibrillation than we thought in the past. His blood pressure is well optimized. We discussed again about management of atrial fibrillation. Given resistant nature of atrial fibrillation with a will have long-term success with rhythm control and improvement in symptoms is unclear. At this point time however given his age and likely redevelopment of congestive heart failure and recommendations by recent trials of pursuing rhythm control approach will switch him to amiodarone loading for 2 weeks followed by 200 mg daily. Loading of 400 mg b.i.d.. If he remains in atrial fibrillation and of loading will pursue with rhythm control approach with cardioversion. Then following long-term to see how symptom improvement would be. If there is significant symptom improvement will pursue ablated therapy in the future. This was discussed with him. Continue full oral anticoagulation given his left atrial enlargement and risk factor of hypertension. Continue to avoid stimulants such as caffeine and alcohol. (2) HTN (hypertension): Code(s): I10 - Essential (primary) hypertension Plan: Hypertension which is currently optimally controlled. Continue the same. Does not have any significant issues with sleep apnea. Advise low-salt diet. Advised to monitor blood pressure at home maintain a log. Goal blood pressure less than 130/84. Will follow up in the clinic after cardioversion. Thank you for allowing me to partake in his care Orders: Orders Cardioversion 2 Weeks I48.19 - Other persistent atrial fibrillation Medications: New amiodarone 400 mg PO BID 14 days 28 tabs 0RF amiodarone Start after 2 weeks of loading with 400 mg b.i.d. 200 mg PO DAILY 30 tabs 5RF Discontinued dronedarone (Multaq) Discontinued Reason: Doctor's Order 400 mg PO BID 60 tabs 0RF Coding Level of Care Code Est Pt Level 4 (30478) Diagnoses Persistent atrial fibrillation I48.19 HTN (hypertension) I10 CPT Codes EKG - CPT: 72945-[id number], Complete ([id number])
== END 2023-04-01 16:13 | disposition home or self-care (01) ==
PROVIDERS: PCP Internal Medicine; Visit Provider Internal Medicine Cardiovascular Disease
DX: I48.19 Other persistent atrial fibrillation (principal); I10 Essential (primary) hypertension
CPT/HCPCS: 93010; 99214

== ENCOUNTER → 2023-04-01 15:16 | Outpatient (BNVA) | payer OTHER, SELFPAY | PROVIDERS: PCP Internal Medicine; Visit Provider Internal Medicine Cardiovascular Disease | DX: I48.19 Other persistent atrial fibrillation (principal); I10 Essential (primary) hypertension | CPT/HCPCS: 93005 ==

== ENCOUNTER 2023-04-07 14:53 | Outpatient (AMB) | payer OTHER, SELFPAY ==
--- NOTE | 2023-04-07 15:21 | AM.OFFVISNUR ---
Intake Intake Visit Reasons: ekg- ?nsr Intake Note: Pt here for EKG to check if he converted to NSR w Amiodarone load. Feels good. No complaints. Technical Manager Required: No Accompanied by: Self / Same As Patient Allergies No Known Allergies Allergy (Verified 02/28/23 12:58) Followed by:: Dr. Baldwin Nursing Note EKG completed, EKG auto-reading sinus rhythm at 76bpm. EKG reviewed by while pt in office. Per Dr. Baldwin, complete amiodarone load and then start the amiodarone 200mg daily as directed. Rx's were sent on 04/01/23 and he has the 200mg pills already at home so is ready for the transition to this dose. He will continue this for at least [address] Baldwin. CVR will be canceled. Beth notified (project controls scheduler). Office Procedures EKG [id number], Complete Coding Level of Care Code Est Pt Level 1 (79348) CPT Codes EKG - CPT: 01353-[id number], Complete ([id number]) Time Spent (min) 15 Comment EKG, Medication Reconciliation, Documentation, Education
== END 2023-04-07 15:18 | disposition home or self-care (01) ==
PROVIDERS: PCP Internal Medicine; Visit Provider Internal Medicine Cardiovascular Disease
DX: I44.0 Atrioventricular block, first degree (principal)
CPT/HCPCS: 93010

== ENCOUNTER → 2023-04-07 14:53 | Outpatient (BNVA) | payer OTHER, SELFPAY | PROVIDERS: PCP Internal Medicine; Visit Provider Internal Medicine Cardiovascular Disease | DX: I44.0 Atrioventricular block, first degree (principal) | CPT/HCPCS: 93005 ==

== ENCOUNTER 2023-04-17 07:19 | Outpatient (REF) | payer OTHER, SELFPAY ==
--- NOTE | ~2023-04-17 | XR_ITS ---
EXAMINATION: XR CHEST CLINICAL INFORMATION: Persistent atrial fibrillation. COMPARISON: 12/15/2013 TECHNIQUE: PA and lateral views of the chest. FINDINGS: There is no gross pneumothorax. Heart size is normal. No pleural effusion. No new focal consolidation to suggest pneumonia. Degenerative changes in the thoracic spine. XR/XR chest 2V IMPRESSION: No evidence of pneumonia.
== END 2023-04-17 07:20 | disposition home or self-care (01) ==
LOC: HO.LAB 07:19
PROVIDERS: PCP Internal Medicine; Visit Provider Internal Medicine Cardiovascular Disease
DX: I48.19 Other persistent atrial fibrillation (principal); R05.9 Cough, unspecified
CPT/HCPCS: 71046

== ENCOUNTER → 2023-04-18 15:09 | Outpatient (REF) | payer OTHER, SELFPAY ==
--- NOTE | 2023-04-18 15:11 | HM_ITS ---
* Total monitoring time 3 days. * Underlying rhythm is sinus with an average rate of 59/Min. Range 43 to 88/Min. About 54% of time, rate less than 60/Min. * Rare supraventricular and ventricular ectopy. * No significant pauses or AV blocks. * No symptoms in patient diary. * One patient marker associated with sinus . MTDD
== END ==
LOC: HO.CARD 15:09
PROVIDERS: PCP Internal Medicine; Visit Provider Internal Medicine Cardiovascular Disease
DX: I48.19 Other persistent atrial fibrillation (principal)
CPT/HCPCS: 93242

== ENCOUNTER → 2023-04-18 15:11 | Outpatient (BNV) | payer OTHER, SELFPAY | PROVIDERS: PCP Internal Medicine; Visit Provider Internal Medicine | DX: I48.19 Other persistent atrial fibrillation (principal) | CPT/HCPCS: 93244 ==

== ENCOUNTER 2023-05-15 15:32 | Outpatient (AMB) | payer OTHER, SELFPAY ==
--- NOTE | 2023-05-15 15:33 | A.OFFVIS_ITS ---
Intake Vital Signs 05/15/23 15:34 Height 5 ft 7 in Weight 165 lb 5.547 oz BMI 25.9 BP 120/72 Blood Pressure Location Lt brachial Position Sitting Pulse 71 Intake Visit Reasons: 2 wk f/up holter/ 4 wk s/p cvr Intake Note: 2 week follow-up holter post cardioversion feeling good Brand Attendant Required: No Allergies No Known Allergies Allergy (Verified 02/28/23 12:58) HPI HPI Comments History of Present Illness Details Ga comes for follow-up. He said after 2 doses of amiodarone he notice that his heart corrected rhythm and he was out of atrial fibrillation back in sinus rhythm. Since then he says he feels a lot improved in terms of his exercise capacity. His shortness of breath and exercise tolerance have improved significantly. He noticed that his heart rate is remaining normal sinus rhythm. Denies any heart failure symptoms. No bleeding issues or neurologic events. Takes all his medications and blood pressure. 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 Review of Systems Const Denies chills, Denies fatigue, Denies fever(s), Denies frequent falls, Denies weakness, Denies weight gain and Denies weight loss ENT Denies dizziness Card Denies chest pain, Denies leg edema, Denies lightheadedness, Denies palpitations, Denies dyspnea, Denies dyspnea on exertion, Denies orthopnea and Denies other (loss of consciousness) Resp Denies cough, Denies dyspnea and Denies dyspnea on exertion GI Denies hematochezia and Denies change in stool character Musc Denies abnormal gait, Denies muscle weakness, Denies numbness, Denies radiating pain into limb and Denies tingling Neuro Denies Abnormal speech present, Denies abnormal gait, Denies dizziness, Denies frequent falls, Denies numbness, Denies tingling and Denies weakness Endo Denies fatigue and Denies palpitations Physical Exam Vital Signs: Last Vital Signs Pulse 71 05/15/23 15:34 BP 120/72 05/15/23 15:34 BMI result Body Mass Index 25.9 Const General: cooperative, comfortable, no acute distress, well developed, alert, awake, Physically active and well groomed Nutritional Appearance: average body habitus and well nourished Orientation/consciousness: patient oriented x3 Limitations: no limitations HEENT Head: Yes normocephalic and Yes atraumatic Neck Neck: Yes trachea midline, Yes supple and Yes no JVD Resp Effort & Inspection: normal respiratory effort Auscultation: clear to auscultation bilaterally Cardio Jugular venous distension: no JVD Rate: regular rate Rhythm: regular rhythm Heart sounds: S1 normal heart sound present, S2 normal heart sound present, no click, no gallops, Murmur heart sound present systolic early, decrescendo and crescendo and no rubs GI Auscultation: normal bowel sounds Skin General skin exam: no rashes or lesions noted Neuro General: patient oriented x3 and no focal motor deficits Speech: No Abnormal speech present Extrem General: Yes no clubbing, cyanosis or edema Office Procedures EKG Details: EKG shows normal sinus rhythm with first-degree AV block with rightward axis with normal QT interval [id number], Complete Assessment & Plan Assessment & Plan (1) Paroxysmal atrial fibrillation: Code(s): I48.0 - Paroxysmal atrial fibrillation Plan: Patient converted to sinus rhythm after initiation of oral amiodarone therapy. Doing extremely well with rhythm management. We discussed again about management of atrial fibrillation. Given his significant symptom improvement we need to aggressively pursue rhythm control approach. For now given his significant left atrial enlargement I think he will require amiodarone for maintenance. Hope that his left atrium will have positive remodeling and improvement in overall size. Once this happens, will refer him for ablation therapy and hopefully able to down titrate his antiarrhythmic drug therapy for amiodarone to either flecainide and/or Multaq therapy. Continue full oral anticoagulation given his left atrial enlargement and hypertension with Eliquis. Semi annual renal function test should be pursued. Follow-up echocardiogram in 5 months time. Avoidance of stimulants was discussed. (2) HTN (hypertension): Code(s): I10 - Essential (primary) hypertension Plan: Hypertension which is currently well optimized. Advised to continue current therapy. Importance of good blood pressure control for secondary prevention was discussed. He understands agrees. Low-salt diet was discussed. Stress mitigation strategies was discussed. (3) Aortic stenosis: Code(s): I35.0 - Nonrheumatic aortic (valve) stenosis Plan: Aortic stenosis which is mild. Continue aggressive medical therapy. Continue full oral anticoagulation Eliquis. Target goal LDL should be at least less than 100 mg/dL. Continue aggressive control blood pressure. Follow up in the clinic in 6 months time, sooner p.r.n.. Thank you for allowing me to partake in his care Coding Level of Care Code Est Pt Level 4 (04356) Diagnoses Paroxysmal atrial fibrillation I48.0 HTN (hypertension) I10 Aortic stenosis I35.0 CPT Codes EKG - CPT: 41661-Mretnafngepeeikim, Complete ([id number])
[2023-05-15 15:34] VITALS: BP 120/72; PULSE 71; BMI 25.9
== END 2023-05-15 16:03 | disposition home or self-care (01) ==
PROVIDERS: PCP Internal Medicine; Visit Provider Internal Medicine Cardiovascular Disease
DX: I48.0 Paroxysmal atrial fibrillation (principal); I10 Essential (primary) hypertension; I35.0 Nonrheumatic aortic (valve) stenosis
CPT/HCPCS: 93010; 99214

== ENCOUNTER → 2023-05-15 15:32 | Outpatient (BNVA) | payer OTHER, SELFPAY | PROVIDERS: PCP Internal Medicine; Visit Provider Internal Medicine Cardiovascular Disease | DX: I48.0 Paroxysmal atrial fibrillation (principal); I10 Essential (primary) hypertension; I35.0 Nonrheumatic aortic (valve) stenosis; Z79.01 Long term (current) use of anticoagulants | CPT/HCPCS: 93005 ==

== ENCOUNTER 2023-09-11 10:01 | Outpatient (REF) | payer OTHER, SELFPAY ==
[2023-09-11 11:18] LABS: MANUAL DIFF FLAG NO
[2023-09-11 11:26] LABS: Basophils Absolute Auto 0.1 X10*3/uL (0.0-0.2); Eosinophils Absolute Auto 0.1 X10*3/uL (0.0-0.4); Eosinophils Percent Auto 1.3 % (0-4); Hematocrit 44.8 % (42.0-52.0); Hemoglobin 15.8 g/dl (14.0-18.0); Imm Gran Abs Auto 0.03 X10*3/uL (0.00-0.03); Imm Gran Pct Auto 0.5 % (0.0-0.4); Lymphocytes Absolute Auto 1.1 X10*3/uL (1.2-4.9); Lymphocytes Percent Auto 16.6 % (20-40); Mean Corpuscular HGB Conc 35.3 g/dl (31.0-36.0); Mean Corpuscular Hemoglobin 32.6 pg (27.0-33.0); Mean Corpuscular Volume 92.4 fL (80.0-98.0); Mean Platelet Volume 9.9 fL (9.4-12.4); Monocytes Absolute Auto 0.4 X10*3/uL (0.1-1.2); Monocytes Percent Auto 6.8 % (2-11); Neutrophils Absolute Auto 4.7 x10*3/uL (2.0-8.3); Neutrophils Percent Auto 73.8 % (45-73); Platelet Count 209 X10*3/uL (160-400); Red Blood Count 4.85 X10*6/uL (4.60-5.80); White Blood Count 6.3 X10*3/uL (4.8-10.8)
[2023-09-11 11:32] LABS: Estimated Average Glucose 100 mg/dL; Hemoglobin A1c % 5.1 % (<6.0)
[2023-09-11 12:30] LABS: Anion Gap 15 (12-20); Blood Urea Nitrogen 17 mg/dL (9-16); Carbon Dioxide 22 mmol/L (22-29); Chloride 106 mmol/L (96-108); Estimated Glomerular Filt Rate > 60; Glucose Random 102 mg/dL (60-115); Potassium 5.1 mmol/L (3.3-5.1); Sodium 138 mmol/L (135-145)
[2023-09-11 12:34] LABS: Free T4 (Free Thyroxine) 0.91 ng/dL (0.71-1.85)
== END 2023-09-11 10:02 | disposition home or self-care (01) ==
LOC: HO.10HDL 10:01
PROVIDERS: Visit Provider Internal Medicine
DX: Z00.00 Encounter for general adult medical examination without abnormal findings (principal); I10 Essential (primary) hypertension; K21.9 Gastro-esophageal reflux disease without esophagitis
CPT/HCPCS: 36415; 80048; 83036; 84439; 84443; 85025

== ENCOUNTER 2023-10-01 13:52 | Outpatient (REF) | payer OTHER, SELFPAY ==
--- NOTE | ~2023-10-01 | US_ITS ---
EXAMINATION: US SCROTUM CLINICAL INFORMATION: Lesion on right epididymis. COMPARISON: None available. TECHNIQUE: A sonogram of the scrotum was performed assessing robins-scale appearance and color Doppler flow. Spectral Doppler analysis of the arterial and venous flow were performed in the testes bilaterally. FINDINGS: RIGHT: Right testicle measures 3.5 x 2.4 x 2.8 cm, volume 12.4 mL. No focal testicular parenchymal lesions are visualized. Spectral Doppler analysis of the arterial and venous flow is normal in the right testis. 0.7 x 0.5 x 0.6 cm cyst in the region of the right epididymal tail. Right epididymal head is normal in size. No right hydrocele or varicocele is seen. Right epididymal Doppler flow is normal. LEFT: Left testicle measures 4.2 x 2.0 x 3.1 cm, volume 13.8 mL. Spectral Doppler analysis of the arterial and venous flow is normal in the left testis. Left epididymal head is normal in size. 0.3 x 0.2 x 0.2 cm cyst in the region of the left epididymal head. 0.7 x 0.7 x 0.6 cm solid appearing mass with internal vascularity in the region of the epididymal tail, possibly representing a mass within the epididymal tail, but difficult to characterize. No left varicocele is seen. Small left hydrocele. Left epididymal Doppler flow is normal. US/US scrotum IMPRESSION: 1. A 0.7 cm solid appearing mass with internal vascularity in the region of the left epididymal tail, possibly representing a mass within the epididymal tail, but difficult to characterize. Urology consultation recommended to determine further management. 2. A 0.7 cm cyst in the region of the right epididymal tail. 3. A 0.3 cm cyst in the region of the left epididymal head. 4. Small left hydrocele. 5. Recommend follow up ultrasound in 3-6 months.
== END 2023-10-01 13:53 | disposition home or self-care (01) ==
LOC: HO.US 13:52
PROVIDERS: PCP Internal Medicine; Visit Provider Internal Medicine
DX: N50.89 Other specified disorders of the male genital organs (principal); N50.3 Cyst of epididymis
CPT/HCPCS: 76870

== ENCOUNTER → 2023-11-04 08:14 | Outpatient (REF) | payer BC, SELFPAY ==
[2023-11-04 09:57] LABS: Cholesterol 170 mg/dL (<200); HDL Cholesterol 42 mg/dL (>40); LDL Cholesterol Calculated 106 mg/dL (<100); Triglycerides 114 mg/dL (<150)
--- NOTE | 2023-11-04 13:59 | CA_ITS ---
Transthoracic Echocardiogram Patient (Last, First, Middle): Ga Velásquez A Gender: Male Date of : 1960 Age: 63 Procedure Date: 11/04/2023 Procedure Type: Transthoracic Echocardiogram Location: OP Height: 167.64 cm Weight: 76.2 kg BSA: 1.86 m2 Heart Rate: 73 bpm BP: 118 / 60 mmHg Dental Assistant Instructor: Referring MD: Mariano Baldwin MD Symptoms: I48.0 - Paroxysmal atrial fibrillation Study Quality: Good ECG Rhythm: Sinus Conclusions: - The left ventricular systolic function is normal. The calculated ejection fraction is 61% by biplane method. - The left atrium is moderately dilated. - Possibly bicuspid aortic valve with calcification and mild-to moderate aortic stenosis. Findings Left Ventricle Normal left ventricular cavity size. There is mildly increased left ventricular wall thickness. The left ventricular systolic function is normal. The calculated ejection fraction is 61% by biplane method. There is no evidence of regional wall motion abnormalities. Diastolic function is normal for age. Right Ventricle Normal right ventricular cavity size and systolic function. Atria The left atrium is moderately dilated. The right atrium is normal in size. Aortic Valve There is moderate calcification of the aortic valve. There is mild to moderate aortic valve stenosis. The peak aortic velocity is 3.24 m/s with a calculated peak gradient of 42 mmHg. The mean gradient is 22 mmHg. The aortic valve area is 1.63 cm2. There is no aortic valve regurgitation. Dimensionless index 0.41. Possibly bicuspid aortic valve. Mitral Valve The mitral valve appears normal. There is no mitral valve regurgitation. There is no mitral valve stenosis. Pulmonic Valve The pulmonic valve is likely normal. Tricuspid Valve Normal tricuspid valve structure. There is trace tricuspid valve regurgitation. There is no evidence of pulmonary hypertension. Great Vessels The asc aorta is normal in size. Venous The inferior vena cava is normal in size and collapses greater than 50% with inspiration. Pericardium/Pleural There is no evidence of pericardial effusion. Prior Study Comparison Changes noted compared to prior study dated: 02/18/2023. Progression of aortic valve stenosis. Measurements 2D Linear Measurements IVSd: 1.28 0.6-0.9/0.6-1.0 cm LVIDd: 4.22 3.9-5.3/4.2-5.9 cm LVIDd Index: 2.27 2.4-3.2/2.2-3.1 cm/m2 LVIDs: 2.68 2.0-3.6 cm LVPWd: 1.25 0.7-1.1 cm Ao Root: 3.40 2.1-3.5 cm LA Diam: 4.10 2.7-3.8/3.0-4.0 cm LAIDs Index: 2.20 1.5-2.3 cm/m2 LV Mass: 241.69 67-162/88-224 g LV Mass Index: 129.94 43-95/49-115 g/m2 LVOT Diam: 2.10 3.0+(-)1.3 cm 2D Systolic Function EF 4C: 63.40 >55% EF 2C: 59.70 >55% EF BiP: 61.30 >55% Mitral Valve MV Pk E: 1.05 MV PK A: 0.72 MV Decel Time: 160.00 E/A: 1.50 E'Lateral: 9.14 E'Medial: 8.05 E/E' Med: 13.00 E/E' Lat: 11.50 PHT: 47.00 MVA PHT: 4.68 Decel [place]: 6.60 Aortic Valve AoV Pk Gregorio: 3.24 AoV Mn Gregorio: 2.13 AoV VTI: 0.70 AoV Pk Grad: 42.00 Aov Mn Grad: 22.00 ESTHELA Cont.VTI: 1.63 LVOT LVOT Pk Gregorio: 1.37 LVOT Mn Gregorio: 0.98 LVOT VTI: 0.33 LVOT Pk Grad: 8.00 LVOT Mn Grad: 4.00 LVOT Diam: 2.10 LVOT Area: 3.46 Diastolic Function MV Pk E: 1.05 MV Pk A: 0.72 E/A: 1.50 E'Medial: 8.05 E/E' Med: 13.00 E' Laterial: 9.14 E/E' Lat: 11.50 Right Ventricle TAPSE (mm): 31.00 TVS' Gregorio: 17.00 Tricuspid Valve TR Pk Gregorio: 2.10 TR Pk Grad: 18.00 RA Press: 3.00 RVSP: 21.00 Great Vessels Aorta Ao Root-2D: 3.40 2.0-3.7 cm Ao Asc: 3.50 2.1-3.4 cm Pulmonary Valve PV Pk Gregorio: 1.44 Peak PV Grad: 8.00 Updated in Other Vendor System with Status of Final Thai Delcid MD electronically signed on 11/05/2023 12:41:38 PM with status of Final
== END ==
LOC: HO.CARD 08:14
PROVIDERS: Absent Provider Internal Medicine; PCP Internal Medicine; Visit Provider Internal Medicine Cardiovascular Disease
DX: I48.0 Paroxysmal atrial fibrillation (principal); E78.5 Hyperlipidemia, unspecified
CPT/HCPCS: 36415; 80061; 93306

== ENCOUNTER → 2023-11-04 13:59 | Outpatient (BNV) | payer BC, SELFPAY | PROVIDERS: Absent Provider Internal Medicine; PCP Internal Medicine; Visit Provider Internal Medicine | DX: I35.0 Nonrheumatic aortic (valve) stenosis (principal); I35.8 Other nonrheumatic aortic valve disorders | CPT/HCPCS: 93306 ==

== ENCOUNTER 2023-11-17 14:44 | Outpatient (AMB) | payer BC, SELFPAY ==
--- NOTE | 2023-11-17 15:08 | MHC.OFFVIS ---
Vital Signs 11/17/23 15:09 Height 5 ft 7 in Weight 167 lb 8.821 oz BMI 26.2 BP 120/72 Blood Pressure Location Lt brachial Position Sitting Pulse 67 Intake Visit Reasons: 6 month fu after echo Intake Note: 6 month follow-up after echo with ekg feeling good Armored Vehicle Officer Required: No Allergies No Known Allergies Allergy (Verified 02/28/23 12:58) Medication List - Last Reconciled 11/17/23 by Mariano Baldwin MD amiodarone 200 mg PO DAILY apixaban (Eliquis) 5 mg PO BID losartan 100 mg PO DAILY HPI Comments Details: Ga comes for follow-up. He said intermittently still feels symptoms of palpitation overall his symptoms burden has been significantly improved. He is breathing is also significantly improved. He says his shortness of breath is much improved and currently can walk 3 miles and 50 minutes without restriction. Denies any exertional chest pain or shortness of breath. Recent echocardiogram shows bicuspid aortic valve with sxdf-[id number] aortic stenosis with normal LV systolic function. Left atrial chamber size seems to have improved to moderately enlarged. He denies any heart failure symptoms. No bleeding issues or neurologic events. Tolerating his medications well. Blood pressures been well controlled. 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 Review of Systems Const Denies chills, Denies fatigue, Denies fever(s), Denies frequent falls, Denies weakness, Denies weight gain and Denies weight loss ENT Denies dizziness Card Denies chest pain, Denies leg edema, Denies lightheadedness, Denies palpitations, Denies dyspnea, Denies dyspnea on exertion, Denies orthopnea and Denies other (loss of consciousness) Resp Denies cough, Denies dyspnea and Denies dyspnea on exertion GI Denies hematochezia and Denies change in stool character Musc Denies abnormal gait, Denies muscle weakness, Denies numbness, Denies radiating pain into limb and Denies tingling Neuro Denies Abnormal speech present, Denies abnormal gait, Denies dizziness, Denies frequent falls, Denies numbness, Denies tingling and Denies weakness Endo Denies fatigue and Denies palpitations Physical Exam Vital Signs: Last Vital Signs Pulse 67 11/17/23 15:09 BP 120/72 11/17/23 15:09 BMI result Body Mass Index 26.2 Neuro Speech: No Abnormal speech present Office Procedures EKG Details: EKG shows normal sinus rhythm with first-degree AV block with rightward axis 10572-[id number], Complete Assessment & Plan Assessment & Plan (1) Paroxysmal atrial fibrillation: Code(s): I48.0 - Paroxysmal atrial fibrillation Category: Medical Plan: paroxysmal atrial fibrillation now, well controlled with significantly improved symptoms with rhythm control approach, currently using amiodarone therapy. By echocardiogram there has been reduction in left atrial chamber size which is suggestive of positive remodeling. This was discussed with him. I think at this point time we need to continue to aggressively pursue rhythm control approach and will refer him to electrophysiology service for consideration of catheter based ablation therapy, however post ablation will most likely require an alternative antiarrhythmic drug such as flecainide and/or Multaq therapy to maintain rhythm. Pathophysiology of atrial fibrillation was discussed in details. He understands agrees. Continue to monitor at home for any symptoms and call me with any recurrent atrial fibrillation episodes. Continue aggressive blood pressure control which is currently well optimized. Avoidance of stimulants was discussed. Continue full oral anticoagulation, currently on Eliquis 5 mg b.i.d.. (2) Aortic stenosis: Code(s): I35.0 - Nonrheumatic aortic (valve) stenosis Category: Medical Plan: Aortic stenosis which is sjrv-ei-ducputit now. Most likely bicuspid aortic valve. This was discussed with him. Discussed management of bicuspid aortic stenosis. Advise screening of his kids to assess for any genetic transmission. Continue monitor clinically. Cardinal symptoms associated with aortic stenosis were discussed. Continue aggressive risk factor modification. Blood pressure is well optimized. Consider statin therapy with target goal LDL less than 100 mg/dL. Gradual progressive nature of aortic stenosis were discussed. Will need echocardiogram on annual basis. Follow up in the clinic in 6 months time, sooner p.r.n.. Thank you for allowing me to partake in his care Orders: Referrals Cardiac Electrophysiology Referral I48.0 - Paroxysmal atrial fibrillation Coding Level of Care Code Est Pt Level 4 (23448) Diagnoses Paroxysmal atrial fibrillation I48.0 Aortic stenosis I35.0 CPT Codes EKG - CPT: 40800-[id number], Complete ([id number])
[2023-11-17 15:09] VITALS: BP 120/72; PULSE 67; BMI 26.2
== END 2023-11-17 15:50 | disposition home or self-care (01) ==
PROVIDERS: PCP Internal Medicine; Visit Provider Internal Medicine Cardiovascular Disease
DX: I48.0 Paroxysmal atrial fibrillation (principal); I35.0 Nonrheumatic aortic (valve) stenosis
CPT/HCPCS: 93010; 99214

== ENCOUNTER → 2023-11-17 14:44 | Outpatient (BNVA) | payer BC, SELFPAY | PROVIDERS: PCP Internal Medicine; Visit Provider Internal Medicine Cardiovascular Disease | DX: I48.0 Paroxysmal atrial fibrillation (principal); I35.0 Nonrheumatic aortic (valve) stenosis; Z79.01 Long term (current) use of anticoagulants; Z79.899 Other long term (current) drug therapy | CPT/HCPCS: 93005 ==

== ENCOUNTER 2024-01-07 13:53 | Outpatient (AMB) | payer BC, SELFPAY ==
--- NOTE | 2024-01-07 14:09 | A.OFFVIS_ITS ---
Intake Visit Reasons: scrotal mass Intake Note: New Patient presents for initial visit for Scrotal Mass Urology Medications: none Blood Thinner: apixaban Parking Lot Manager Required: No Accompanied by: Self / Same As Patient Allergies No Known Allergies Allergy (Verified 01/07/24 14:49) Medication List - Last Reconciled 01/07/24 by RUSTAM Keller amiodarone 200 mg PO DAILY apixaban (Eliquis) 5 mg PO BID losartan 100 mg PO DAILY HPI Comments Details: Ga is a very pleasant 63-year-old male patient of Dr. Snow. He has a past medical history of AFib, GERD, and hypertension. He presents to the office today as a new patient for epididymal cyst as well as an epididymal mass. In discussion with the patient today reports having followed up with his PCP for right-sided mass he had palpated on testicular exam at which time a scrotal ultrasound was ordered and performed. These results reviewed with the patient today. A 0.7 cm solid appearing mass with internal vascularity in the region of the left epididymal tail, possibly representing a mass within the epididymal tail, but difficult to characterize. A 0.7 cm cyst in the region of the right epididymal tail. A 0.3 cm cyst in the region of the left epididymal head. Small left hydrocele. In assessment of the patient today the penis is circumcised. Multiple areas palpated within the scrotum. We discussed at length bilateral epididymal head cyst as well as solid mass on left epididymal tail. We discussed further intervention to include excision versus surveillance monitoring. Risks and benefits of these interventions were discussed. When asked he denies any bothersome urinary issues or concerns. He denies any testicular/scrotal pain. He denies urinary urgency, urinary frequency, incontinence, nocturia, hematuria, dysuria, foul smelling urine, changes to urinary stream, flank pain, fever, and or chills. He is happy with his current voiding parameters. 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 Review of Systems Const All systems reviewed & are unremarkable except as noted in HPI and below Physical Exam Const General: cooperative, comfortable, no acute distress, well developed, alert and awake Orientation/consciousness: patient oriented x3 HEENT Head: Yes normal to inspection, Yes normocephalic and Yes atraumatic Ears: hearing grossly normal bilaterally Eyes General: appearance normal, both eyes and all related structures Neck Neck: Yes normal visual inspection and Yes trachea midline Chest Chest palpation & inspection: normal inspection of the chest Resp Effort & Inspection: normal respiratory effort and able to speak in complete sentences Cardio Rate: regular rate GI Inspection: Yes normal to inspection Other: as per HPI General: Yes no CVA tenderness Back/Spine/Pelvis Back: no CVA tenderness Skin General skin exam: no rashes or lesions noted Neuro General: patient oriented x3 Extrem General: Yes normal to inspection Psych Appearance: grossly normal and well kempt Mental Status: mental status grossly normal Speech and movement: Normal speech and movement present and Clear speech present Affect: normal affect Attitude: cooperative Thought process: Normal thought process present Thought content: Normal thought content present Insight: Fair insight present (Psych) Judgement: Fair judgement present (Psych) Results AMB Urinalysis, Automated UA Leukoctes 0 Nanci/uL Last Edit by Ubisense on 01/07/24 14:29 UA Nitrite Negative Last Edit by Ubisense on 01/07/24 14:29 UA Urobilinogen 0.2 mg/dL Last Edit by [email or web address]-IT on 01/07/24 14:29 UA Protein 0 mg/dL Last Edit by Ubisense on 01/07/24 14:29 UA pH 6.0 Last Edit by Ubisense on 01/07/24 14:29 UA Blood 0 Sunny/uL Last Edit by Ubisense on 01/07/24 14:29 UA Specific [place] 1.025 Last Edit by Ubisense on 01/07/24 14:29 UA Ketone Negative Last Edit by Ubisense on 01/07/24 14:29 UA Bilirubin 0 mg/dL Last Edit by Ubisense on 01/07/24 14:29 UA Glucose 0 mg/dL Last Edit by Arun Baez on 01/07/24 14:29 Results Reviewed Results Reviewed: Laboratory Last Values Urine pH (Auto) 6.0 01/07/24 14:21 Specific [place] (Auto) 1.025 01/07/24 14:21 Urine Protein (Auto) 0 mg/dL 01/07/24 14:21 Glucose (UA)(Auto) 0 mg/dL 01/07/24 14:21 Urine Ketones (Auto) Negative 01/07/24 14:21 Urine Blood (Auto) 0 Sunny/uL 01/07/24 14:21 Urine Nitrite (Auto) Negative 01/07/24 14:21 Urine Bilirubin (Auto) 0 mg/dL 01/07/24 14:21 Urine Urobilinogen (Auto) 0.2 mg/dL 01/07/24 14:21 Leukocyte Esterase (Auto) 0 Nanci/uL 01/07/24 14:21 Assessment & Plan Assessment & Plan (1) Epididymal cyst: Code(s): N50.3 - Cyst of epididymis Category: Medical (2) Epididymal mass: Code(s): N50.89 - Other specified disorders of the male genital organs Category: Medical Plan In office urinalysis results reviewed with the patient today; as noted above. Recent scrotal ultrasound results reviewed with the patient today; as noted above. Discussed excision of epididymal mass verses surveillance monitoring; risks and benefits of these interventions were discussed at length. All questions were answered. Patient currently denies any bothersome urinary issues or concerns. He reports be happy with current voiding parameters. He reports be following up with PSAs and NICOLÁS is with PCP. Will obtain scrotal ultrasound in 6 months. Follow-up in 6 months with imaging to be completed prior; or sooner with any issues, concerns, and or questions. Orders: Orders AMB Urinalysis Automated Today Z13.9 - Encounter for screening, unspecified US scrotum 6 Months N50.3 - Cyst of epididymis, N50.89 - Other specified disorders of the male genital organs Patient Instructions: The patient had an opportunity to ask questions regarding the treatment plan. All questions were answered. Physical exam, labs, and imaging were discussed and reviewed in detail. As well as risks, benefits, and discussion of treatment choices. No major barriers to understanding were identified. The patient expressed understanding and agreement with the above treatment plan. The patient was made aware they should contact our office by phone for worsening of their current condition, the appearance of new symptoms, or with any questions or concerns. Compliance is encouraged with any medications and follow up testing that is ordered. It is a privilege to be allowed the opportunity to participate in? your urological care.? Again, if you have any questions or concerns If you have any questions or concerns please do not hesitate to contact me. The office is [phone]. This note is constructed using voice recognition software. While every effort has been made to ensure accuracy chief of safety and protection errors may have been included. Yours sincerely, RUSTAM Keller Coding Level of Care Code New Pt Level 4 (52769) Diagnoses Epididymal cyst N50.3 Epididymal mass N50.89 Time Spent (min) 30
== END 2024-01-07 14:50 | disposition home or self-care (01) ==
PROVIDERS: PCP Internal Medicine; Visit Provider Nurse Practitioner Family
DX: N50.3 Cyst of epididymis (principal); N50.89 Other specified disorders of the male genital organs; Z13.9 Encounter for screening, unspecified
CPT/HCPCS: 99204

== ENCOUNTER → 2024-01-07 13:53 | Outpatient (BNVA) | payer OTHER, SELFPAY | PROVIDERS: PCP Internal Medicine; Visit Provider Nurse Practitioner Family | DX: N50.3 Cyst of epididymis (principal); N50.89 Other specified disorders of the male genital organs | CPT/HCPCS: 81003 ==

== ENCOUNTER 2024-04-06 13:49 | Outpatient (REF) | payer BC, SELFPAY ==
--- NOTE | ~2024-04-06 | XR_ITS ---
EXAMINATION: XR KNEE, RIGHT CLINICAL INFORMATION: RIGHT KNEE PAIN COMPARISON: None available. TECHNIQUE: Four views of the right knee. FINDINGS: Small knee joint effusion. Tiny posterior patellar spurs superiorly and inferiorly. Minimal narrowing of the lateral compartment. Degenerative changes patellofemoral joint, worse laterally. XR/XR knee RT 4V IMPRESSION: Mild degenerative changes. This study was presented today April 07, 2024 for interpretation. Stat results provided at this time as requested by referring provider. Electronically signed by: Ute Barba MD 04/07/2024 01:18 PM JAVIER SWAIN
[2024-04-06 14:05] LABS: MANUAL DIFF FLAG NO
[2024-04-06 15:51] LABS: Basophils Absolute Auto 0.1 X10*3/uL (0.0-0.2); Eosinophils Absolute Auto 0.2 X10*3/uL (0.0-0.4); Eosinophils Percent Auto 2.8 % (0-4); Hemoglobin 16.1 g/dl (14.0-18.0); Imm Gran Abs Auto 0.05 X10*3/uL (0.00-0.03); Imm Gran Pct Auto 0.6 % (0.0-0.4); Lymphocytes Absolute Auto 1.6 X10*3/uL (1.2-4.9); Lymphocytes Percent Auto 19.4 % (20-40); Mean Corpuscular Hemoglobin 32.3 pg (27.0-33.0); Mean Corpuscular Volume 92.4 fL (80.0-98.0); Mean Platelet Volume 10.3 fL (9.4-12.4); Monocytes Absolute Auto 0.6 X10*3/uL (0.1-1.2); Monocytes Percent Auto 7.1 % (2-11); Neutrophils Absolute Auto 5.6 x10*3/uL (2.0-8.3); Neutrophils Percent Auto 69.1 % (45-73); Platelet Count 232 X10*3/uL (160-400); Red Blood Count 4.98 X10*6/uL (4.60-5.80); Red Cell Distribution Width 12.1 % (11.0-16.0); White Blood Count 8.1 X10*3/uL (4.8-10.8)
[2024-04-06 18:16] LABS: Alanine Aminotransferase 74 U/L (0-40); Albumin Level 4.7 g/dL (3.5-5.0); Alkaline Phosphatase 77 U/L (39-117); Anion Gap 13 (12-20); Aspartate Amino Transferase 38 U/L (5-37); Bilirubin Total 0.8 mg/dL (0.0-1.0); Blood Urea Nitrogen 19 mg/dL (9-16); Calcium 9.9 mg/dL (8.4-10.2); Carbon Dioxide 25 mmol/L (22-29); Chloride 105 mmol/L (96-108); Estimated Glomerular Filt Rate > 60; Glucose Random 92 mg/dL (60-115); Potassium 4.3 mmol/L (3.3-5.1); Sodium 139 mmol/L (135-145); Total Protein 7.3 g/dL (6.5-8.0)
[2024-04-06 19:04] LABS: Free T4 (Free Thyroxine) 1.09 ng/dL (0.71-1.85); Thyroid Stimulating Hormone 0.94 uIU/mL (0.32-4.0)
== END 2024-04-06 13:50 | disposition home or self-care (01) ==
LOC: HO.XRAY 13:49
PROVIDERS: PCP Internal Medicine; Visit Provider Internal Medicine
DX: I48.91 Unspecified atrial fibrillation (principal); I10 Essential (primary) hypertension; M25.561 Pain in right knee
CPT/HCPCS: 36415; 73564; 80053; 84439; 84443; 85025

== ENCOUNTER 2024-05-20 15:05 | Outpatient (AMB) | payer OTHER, SELFPAY ==
[2024-05-20 15:14] VITALS: BP 120/78; PULSE 62; BMI 27.6
--- NOTE | 2024-05-20 15:14 | MHC.OFFVIS ---
Vital Signs 05/20/24 15:14 Height 5 ft 7 in Weight 176 lb 5.917 oz BMI 27.6 BP 120/78 Blood Pressure Location Lt brachial Position Sitting Pulse 62 Intake Visit Reasons: 3 mth Intake Note: 3 month follow-up with ekg Resource Specialist Required: No Allergies No Known Allergies Allergy (Verified 01/07/24 14:49) Medication List - Last Reconciled 05/20/24 by Mariano Baldwin MD amiodarone 200 mg PO DAILY apixaban (Eliquis) 5 mg PO BID losartan 100 mg PO DAILY HPI Comments Details: Ga comes for follow-up after 6 months. He has an appointment for atrial fib ablation in the coming 2 weeks. He has had no new symptoms. Says his heart has remained pretty much in stable rhythm for the last 6 months. He notices much improvement in his activity level. Denies any shortness of breath. No orthopnea, PND, leg edema. Denies any prolonged palpitation. No lightheadedness, syncope. No bleeding issues or neurologic events. 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 Review of Systems Const Denies chills, Denies fatigue, Denies fever(s), Denies frequent falls, Denies weakness, Denies weight gain and Denies weight loss ENT Denies dizziness Card Denies chest pain, Denies leg edema, Denies lightheadedness, Denies palpitations, Denies dyspnea, Denies dyspnea on exertion, Denies orthopnea and Denies other (loss of consciousness) Resp Denies cough, Denies dyspnea and Denies dyspnea on exertion GI Denies hematochezia and Denies change in stool character Musc Denies abnormal gait, Denies muscle weakness, Denies numbness, Denies radiating pain into limb and Denies tingling Neuro Denies abnormal gait, Denies dizziness, Denies frequent falls, Denies numbness, Denies tingling and Denies weakness Endo Denies fatigue and Denies palpitations Physical Exam Vital Signs: Last Vital Signs Pulse 62 05/20/24 15:14 BP 120/78 05/20/24 15:14 BMI result Body Mass Index 27.6 Const General: cooperative, comfortable, no acute distress, well developed, alert and awake Orientation/consciousness: patient oriented x3 HEENT Head: Yes normal to inspection, Yes normocephalic and Yes atraumatic Ears: hearing grossly normal bilaterally Eyes General: appearance normal, both eyes and all related structures Neck Neck: Yes normal visual inspection and Yes trachea midline Chest Chest palpation & inspection: normal inspection of the chest Resp Effort & Inspection: normal respiratory effort and able to speak in complete sentences Cardio Jugular venous distension: no JVD Palpation: normal PMI Rate: regular rate Rhythm: regular rhythm Heart sounds: S1 normal heart sound present, S2 normal heart sound present, no click, no gallops and Murmur heart sound present systolic mid, decrescendo and crescendo GI Inspection: Yes normal to inspection Other: as per HPI General: Yes no CVA tenderness Back/Spine/Pelvis Back: no CVA tenderness Skin General skin exam: no rashes or lesions noted Neuro General: patient oriented x3 Extrem General: Yes normal to inspection Psych Appearance: grossly normal and well kempt Mental Status: mental status grossly normal Speech and movement: Normal speech and movement present and Clear speech present Affect: normal affect Attitude: cooperative Thought process: Normal thought process present Thought content: Normal thought content present Insight: Fair insight present (Psych) Judgement: Fair judgement present (Psych) Office Procedures EKG Details: EKG shows normal sinus rhythm with right axis deviation with T-wave inversion inferior leads 14029-Ulkiposxwkxlajrvu, Complete Assessment & Plan Assessment & Plan (1) Paroxysmal atrial fibrillation: Code(s): I48.0 - Paroxysmal atrial fibrillation Category: Medical Plan: Highly symptomatic paroxysmal atrial fibrillation due to loss of AV synchrony. Has done extremely well with rhythm control approach. Pursue amiodarone therapy and pursue aggressively rhythm control approach. Agree with ablation for now eventually transition him to a different antiarrhythmic drug. Will need ischemic workup post ablation to evaluate for CAD and further guide therapy may benefit from class 1 C agents. Continue full oral anticoagulation, currently on apixaban 5 mg b.i.d.. Continue aggressive blood pressure control. Avoidance of stimulants was discussed. (2) Aortic stenosis: Code(s): I35.0 - Nonrheumatic aortic (valve) stenosis Category: Medical Plan: Aortic stenosis which appears to be [id number]. Continue monitor clinically. Continue aggressive blood pressure control which is currently well optimized. Currently on full oral anticoagulation apixaban and will continue the same. Consider lipid therapy with target goal LDL definitely less than 100 mg/dL. Follow-up echocardiogram in November. Will follow up in the clinic in 4 months time, sooner p.r.n.. Thank you for allowing me to partake in his care Coding Level of Care Code Est Pt Level 4 (41388) Complex EM visit Add On G2211 Diagnoses Paroxysmal atrial fibrillation I48.0 Aortic stenosis I35.0 CPT Codes EKG - CPT: 87024-[id number], Complete ([id number])
--- OUTSIDE RECORDS SUMMARY | 2024-05-20 20:02 | XMS_ITS | Continuity of Care Document ---
Author Organization [facility] Address [address] [place] [phone]- Care Team Providers Care Matrix Drier Tender Name Role Phone Torres Snow MD Primary Care Physician [phone] Encounter [facility] Date(s): 04/08/24 - 05/08/24 [facility] [address] [place] [phone]- Encounter Type: Triage Allergies, Adverse Reactions, Alerts No Known Medication Allergies Medications amiodarone 200 mg oral tablet 200 mg, 1, tablet, By Mouth, 2 times a day, # 60 tablet, Refills 0, Maintenance, 03/29/24 10:13:00 AM EST, Partial fill upon patient request if the prescription is for a schedule II opioid drug. Start Date: 03/29/24 Status: Ordered Quantity: 60.0 Unit: tablet Repeat number: 1 Eliquis 5 mg oral tablet 1 tablet = 5 mg, By Mouth, 2 times a day, # 60 tablet, 5 Refills, Maintenance, 03/29/24 10:14:00 AMEST, Tablet, Partial fill upon patient request if the prescription is for a schedule II opioid drug. Start Date: 03/29/24 Status: Ordered Quantity: 60.0 Unit: tablet Repeat number: 1 losartan 100 mg oral tablet 1 tablet = 100 mg, By Mouth, Daily, # 30 tablet, 0 Refills, Maintenance, 03/29/24 10:13:00 AM EST, Tablet, Partial fill upon patient request if the prescription is for a schedule II opioid drug. Start Date: 03/29/24 Status: Ordered Quantity: 30.0 Unit: tablet Repeat number: 1 Social History Social History Type Response Smoking Status Never (less than 100 in lifetime) entered on: 03/29/24 Sex Sex Representation Male (finding) Patient Care team information Care Team Personnel Name: Torres Snow MD Position: S Outreach Member Role: PCP Address: [address] [place] [address] [place] [address]- Telecom: Care Team Related Persons Name: JULITO WILLS Insurance Providers Guarantor name: ARAON WILLS Health Plan Information #: 1 Payer: [employer] Member Number: NA Policy Number: NA Group Number: NA
--- OUTSIDE RECORDS SUMMARY | 2024-05-20 20:02 | XMS_ITS | Continuity of Care Document ---
Author Organization [facility] Address [address] [place] [id number]- Care Team Providers Care 411 Directory Assistance Operator Name Role Phone Torres Snow MD Primary Care Physician [phone] Encounter [facility] Date(s): 04/08/24 - 05/08/24 [facility] [address] [place] [id number]- Encounter Type: Triage Allergies, Adverse Reactions, Alerts [...] Position: S Outreach Member Role: PCP Address: [address] [facility] [place] [address]- Telecom: Care Team Related Persons Name: JULITO WILLS Insurance Providers Guarantor name: AARON WILLS Health Plan Information #: 1 Payer: HMO [employer] Member Number: NA Policy Number: NA Group Number: NA
== END 2024-05-20 15:53 | disposition home or self-care (01) ==
PROVIDERS: PCP Internal Medicine; Visit Provider Internal Medicine Cardiovascular Disease
DX: I48.0 Paroxysmal atrial fibrillation (principal); I35.0 Nonrheumatic aortic (valve) stenosis
CPT/HCPCS: 93010; 99214

== ENCOUNTER → 2024-05-20 15:05 | Outpatient (BNVA) | payer OTHER, SELFPAY | PROVIDERS: PCP Internal Medicine; Visit Provider Internal Medicine Cardiovascular Disease | DX: I48.0 Paroxysmal atrial fibrillation (principal); I35.0 Nonrheumatic aortic (valve) stenosis; Z79.01 Long term (current) use of anticoagulants | CPT/HCPCS: 93005 ==

== ENCOUNTER 2024-06-15 13:54 | Outpatient (REF) | payer BC, SELFPAY ==
[2024-06-15 14:06] LABS: MANUAL DIFF FLAG NO
--- OUTSIDE RECORDS SUMMARY | 2024-06-15 14:56 | XMS_ITS | Continuity of Care Document ---
Author Organization [facility] ter Address [address] [place] [id number]- Care Team Providers Care Motor Setter Name Role Phone Torres Sonw MD Primary Care Physician [phone] Encounter [facility] Date(s): 06/04/24 - 06/04/[address] [address] Discharge Disposition: A-D/C Home Attending Physician: Damian Benson MD Admitting Physician: Damian Benson MD Referring Physician: Damian Benson MD Encounter Type: Disch Daystay Allergies, Adverse Reactions, Alerts No Known Medication [...] Quantity: 30.0 Unit: tablet Repeat number: 1 Vital Signs Most recent to oldest [Reference Range]: 1 2 3 Height 170 cm (06/04/24 9:00 AM) Weight 80.2 kg (06/04/24 9:00 AM) Oxygen Saturation [94-100 %] 94 % (06/04/24 5:00 PM) 93 % *L* (06/04/24 3:45 PM) 92 % *L* (06/04/24 2:45 PM) Pulse Rate [55-90 bpm] 62 bpm (06/04/24 9:00 AM) Body Mass Index [18.5-24.99 kg/m2] 27.75 kg/m2 *H* (06/04/24 9:00 AM) Blood Pressure [90-138/55-84 mm Hg] 129/82mm Hg (06/04/24 5:00 PM) 130/93mm Hg (06/04/24 3:45 PM) 126/80mm Hg (06/04/24 2:45 PM) Respiratory Rate [16-30 br/min] 19 br/min (06/04/24 5:00 PM) 18 br/min (06/04/24 3:45 PM) 18 br/min (06/04/24 2:45 PM) Temperature [96.8-100.4 DegF] 97.6 DegF (06/04/24 9:00 AM) Liters per Minute 2 L/min (06/04/24 12:15 PM) 4 L/min (06/04/24 12:00 PM) Mode of Delivery (Oxygen) Room air (06/04/24 12:30 PM) Nasal cannula (06/04/24 12:15 PM) Simple face mask (06/04/24 12:00 PM) Blood pressure sites Arm, right (06/04/24 9:00 AM) Temperature Route Temporal (06/04/24 9:00 AM) Dry Weight 80.2 kg (06/04/24 9:00 AM) Social History Social History Type Response Smoking Status Never (less than 100 in lifetime) entered on: 03/29/24 Sex Sex Representation Male (finding) Note * Event Display: Hemodynamic Procedure Report Authored Date: * Dayan Gentile RN: PERFORM Event Display: Discharge/Transfer Note Hospital Authored Date: [id number] Nursing Discharge Note Entered On: 06/04/2024 17:47 EST Performed On: 06/04/2024 17:47 EST by Dayan Gentile RN Nursing Discharge Note 2 Discharge Time : 06/04/2024 17:35 EST Discharge Level of Care at Discharge : Home/[facility] Patient Left Unit Via : Wheelchair Patient Accompanied Off Unit with : Responsible adult DC Instructions Provided & Signed by Pt : Yes Patient Understands D/C Instructions : Yes Patient Instructions Discharge Signed : Yes Did Pt have Specialty Bed or Wound Vac : No Dayan Gentile RN - 06/04/2024 17:47 EST * Dayan Gentile RN: PERFORM Event Display: Patient Education/Instruction Authored Date: [id number] Inpatient Adult Discharge Instructions. [address] [address] Name: AARON WILLS : 1960?? Visit: 06/04/2024 08:35?? Current Date: 06/04/2024 16:53 ?? Account: [id number]?? Inpatient Adult Discharge Instructions We would like to thank you for allowing us to assist you with your healthcare needs. The following includes patient education materials and information regarding your injury/illness. Our entire staffstrives to provide an excellent experience for our patients and their families. PLEASE ENSURE YOU FOLLOW-UP PER THE INSTRUCTIONS BELOW! ?? YOUR OPINION IS IMPORTANT TO US! Please complete the survey you may receive by mail or email. Your feedback will be used to make improvements to the healthcare experiences of our patients and their families. Surveys are administered by [employer] ?? If further treatment with your primary care physician or another doctor is recommended, it is important for you to keep the appointment. Call your primary care physician or return to the Emergency Department immediately if your condition worsens, fails to improve, or new symptoms develop. If you need to find a doctor, you can call [facility] [employer] for a referral at [phone] or toll free at [phone] Mobile NetworksEQHIJK ([phone]) or log in to [email or web address].. ?? [facility], in keeping with [facility] guidance, no longer requires face masks for staff, patientsor visitors in most situations. Similiar to time spent indoors at other locations, there is the chance that you were exposed to repiratory viruses during your time with us (such as flu or COVID-19). If you develop symptoms concerning for a viral respiratory infection, please seek testing (and treatment if indicated) from your medical provider or home test kit. ?? You can view and manage your care through the patient portal or by using a health care teresita of your choosing. [employer] is a website that allows you to securely view your medical information including your hospital discharge summary, office visit summaries, medications and follow-up visits. You can also request appointments, renew medications, and request access to your medical information using a health care teresita of your choosing, or just ask a question. You can enroll at [email or web address] or register during your next office visit. You have been discharged from [facility], Patient Care Unit: CARE??. If you have any questions regarding these instructions, including results of studies pending, afteryou leave, please call us and we will be happy to assist you 25/11. [facility] Nursing Unit Direct Phone Number, for 25/11 contact and results of studies pending CARE [address] [place] [id number] Your Care Team Attending Physician Damian Benson MD?? Consulting Providers Damian Benson MD?? Discharging Providers Yobani Landers MD Tests Performed Below is a partial list of the tests performed during your hospitalization. You may have had other tests and procedures not included in this list. Please discuss all test results with your provider. POC Hemochron ACT-LR Type and Screen POC ACT-LR (POC Hemochron ACT-LR)?? Type and Screen?? Primary Care Provider Torres Snow MD? Advance Directive Health Care Proxy on File No Discharge Vitals Temperature: 97.6 DegF Height: 170 cm Pulse Rate: 62 bpm Weight: 80.2 kg Respiratory Rate: 18 br/min Body Mass Index:??27.75 kg/m2??High Systolic Blood Pressure: 130 mm Hg Body surface area: 1.95 Diastolic Blood Pressure:??93 mm Hg??High ?? Oxygen Saturation:??93 %??Low ?? Studies Pending All studies ordered during this hospital stay have been completed unless listed below. Please discuss all pending results with your provider listed above in these instructions. ?? No incomplete studies found?? What to do next Instructions From Your Doctor ?? Orders?? discharge after post procedure rest order complete, patient has ambulated and groin incision(s) arestable 30 mins post ambulation, ??06/04/24 11:42:00 EST?? Discharge Medications AARON WILLS :1960 Visit Date:06/04/2024 Medications: Please continue your medications until treatment is completed or stopped by your provider. Medications not listed below should be discontinued. Discuss any questions related to medications with your provider. What How Much When Instructions Next Dose Unchanged amiODARONE (amiodarone 200 mg oral tablet) 1 tab(s) Oral Twice a day continue as instructed Unchanged apixaban (Eliquis 5 mg oral tablet) 1 tab(s) Oral Twice a day continue as instructed Unchanged Losartan (losartan 100 mg oral tablet) 1 tab(s) Oral Daily continue as instructed Prescription Given During Visit No new medications prescribed at time of discharge.?? Laboratory Results Below is a partial list of the most recent Laboratory test results done prior to this discharge. You may have had other tests and procedures not included in this list. Please discuss all test resultswith your provider. POC Hemochron ACT-LR (06/04/2024) ???POC ACT-LR - 380.0 seconds Type and Screen (06/04/2024) ???Blood Type - B Positive???Antibody Screen - Negative You will be contacted within 72 hours with your results. Allergies (NKA means No Known Allergies) No Known Medication Allergies Problems No qualifying data available Education Materials Below is the list of Educational Leaflet Providered with your Discharge Instructions. [employer] Patient Education - M-Groin I Discharge Instructions?? [employer] Patient Education - Discharge Instructions for Catheter Ablation?? [employer] Patient Education - Anesthesia: General Anesthesia?? Valuables and Belongings I fully understand and agree that [facility] accepts no responsibility for all my personal property including clothing, toilet articles, radios, jewelry, dentures, hearing aids, rings, money, or any other property that is in my possession or is brought to me after admission. I understand certain valuables may be placed in a hospital safe for a short period of time. I understand that the hospital is not liable for loss or damage due to accident, fire, or other natural occurrence while said property is in the safe. I accept full responsibility for any personal property that I keep with me, and will not hold the hospital responsible in case of loss or disappearance. I acknowledge that i have been encouraged to send valuables and belongings home. ?? Review of Valuable and Belonging List: With patient Date for Pt to Sign Valuables/Belongings: 06/04/24 13:45:00 ?? Other Discharge Information ? Pulmonary Rehab Status?? Pulmonary Rehab Discharge Status?? Respiratory Rate: 18 br/min ? Common Emergency Awareness Tips IS IT A STROKE? Act FAST and Check for these signs: FACE Does the face look uneven? ARM Does one arm drift down? SPEECH Does their speech sound strange? TIME Call at any sign of stroke ?? Heart Attack Signs Chest discomfort: Most heart attacks involve discomfort in the center of the chest and lasts more than a few minutes, or goes away and comes back. It can feel like uncomfortable pressure, squeezing, fullness or pain. Discomfort in upper body: Symptoms can include pain or discomfort in one or both arms, back, neck, jaw or stomach. Shortness of breath: With or without discomfort. Other signs: Breaking out in a cold sweat, nausea, or lightheaded. Remember, MINUTES DO MATTER. If you experience any of these heart attack warning signs, call to get immediate medical attention! ?? Smoking can increase your chances of developing chronic health problems and can cause harmful effects to other family members in your house. If you smoke, you are strongly encouraged to quit. Please call [employer] at [phone] or [phone] ([phone]) or log in to [email or web address] for referrals to smoking cessation programs. ?? 728 Suicide & Crisis Lifeline is available 25/11 if you or someone you know needs to find a reason to keep living. By calling 013 you'll be connected to a skilled, trained counselor at a crisis center in your area. INPATIENT DISCHARGE INSTRUCTIONS SIGNATURE PAGE AARON WILLS Location:[facility] Registration Date and Time:06/04/2024 08:35 EST Primary Care Physician: Torres Snow MD, Attending Physician: Marcelino HASTINGS, Damian Perales, I AARON WILLS, have received the above patient education materials/instructions and have verbalized understanding. If ambulance or transport services are being used I further acknowledge being given a choice of service. ?? If you need to contact me, please call me at this number: . Patient/Doll Eye Setter Name: Patient/Doll Eye Setter Signature: Relationship to Patient: Witness Name/Signature: Date: * Dayan Gentile RN: PERFORM Event Display: Patient Education Leaflets Authored Date: [id number] M-Groin I Discharge Instructions ?? 179 Groin Discharge Instructions No heavy lifting over 10 pounds (for example: gallon of milk) 1 week following the procedure; gradually increase normal activity over the next 5 days. Avoid straining/pushing when moving bowels You may feel like resting more after your procedure. Slowly start to do more each day. Rest when you feel it is needed. Make sure to look at your procedure site every day until it is completely healed. You may see bruising at the puncture site and that is common after the procedure. You may shower the day after your procedure. Remove the band aid before showering. Wash the area gently with soap and water. Leave open to air. Do not take tub baths, hot tubs, soaking of the puncture site or swimming for 1 week. Do not put any creams, powders or lotions on your puncture site You may resume sexual activity the day after your procedure; avoid bending the hip on ?? the side of the groin puncture excessively and any strenuous positions for 1 week. Call your doctor if your procedure site develops any of the following: ??? New onset severe pain ??? New onset lump or swelling ??? Bleeding that does not stop with lightpressure ? * Dayan Gentile RN: PERFORM Event Display: Patient Education Leaflets Authored Date: Discharge Instructions for Catheter Ablation ?? [id number] Discharge Instructions for Catheter Ablation You have had a procedure called catheter ablation. It was??used to treat an abnormal heartbeat (arrhythmia). This procedure destroyed (ablated) the cells in your heart that were causing your heart rhythm problem. During the procedure, the health care provider put a thin,??flexible??wire (catheter)??into a blood vessel in your groin. You may have also had a catheter placed through a vein in your neck. The provider then threaded the catheter to your heart to find the area of concern and treat theproblem. Home care Here are recommendations for care at home: ??? Make arrangements for someone to drive you home after the procedure. You will be given medicine to relax you (sedation). Your health care provider may tell you not to??drive for 24 to 48 hours after the procedure. ??? Expect to be able to go back to your normal daily activities in the next 1 to 2 days. These??include walking, climbing stairs, and doing light manager mass. ??? Don't do any heavy physical activity or excessive bending at the waist for several days after the procedure. This will allow your body to heal. ??? Don't lift heavy objects until your provider tells you to. Talk with your provider about any specific limits you need to follow. ??? Ask your provider when you can??return to work. ??? Check the area where the catheter was inserted for signs of infection every day for a week. Keep the site dry as instructed. Signs of infection include redness, swelling, drainage, or warmth at the incision site.??Take your temperature if you feel you may have a fever. Let your provider know if you develop any symptoms of infection orsee any discharge from your site. ??? Take your medicines exactly as directed. Don???t skip doses. You may need to make some changes in your medicines because of the ablation procedure. Be sure to goover your medicine instructions with your provider before you are discharged. ??? Learn to take your own pulse. Keep a record of your results. Ask your provider which readings mean that you need medical attention. ?? Follow-up care Make a follow-up appointment as directed by your health care provider. Your provider will check howthe catheter site is healing. In many cases, 1 ablation is enough to treat an arrhythmia. But sometimes the problem comes back or another problem is found. If this happens, you may need a second procedure. ?? When to call your doctor Contact your health care provider right away if you have: ??? Redness, pain, swelling, bleeding, or drainage from the area where the catheter was put in. ???A temperature of 100.4??F (38??C) or higher, or as directed by your provider. ??? Sudden coldness, pain, or numbness in the leg or arm where the catheter was put in. ??? Nausea or vomiting. ??? Difficulty swallowing, excessive pain when swallowing, or vomiting blood. ??? A heart rate that stays high. Note: Ask your provider what to expect about your heartbeat. Sometimes the irregularity goes away right after the procedure. Other times it may take longer to go away. ?? Call 911 Call 911 right away if you have: ??? Bleeding from the puncture site that does not slow down when you press on it firmly. ??? Chest pain, shortness of breath, or dizziness. ??? Sudden numbness or weakness, especially on one side of the body, or difficulty speaking. ??? A sudden loss of consciousness/responsiveness. ?? Last Reviewed Date: 2024 ?? [id number] [employer]. All rights reserved. This information is not intended as a substitute for professional medical care. Always follow your healthcare professional's instructions. ?? * Dayan Gentile RN: PERFORM Event Display: Patient Education Leaflets Authored Date: [id number] Anesthesia: General Anesthesia ?? Anesthesia: General Anesthesia You???re due to have surgery. During surgery, you???ll be given medicine called anesthesia or anesthetic. This will keep you comfortable and pain-free. Your??anesthesia provider??will use general anesthesia . You are watched continuously during your procedure by your anesthesia provider. What is general anesthesia? General anesthesia puts you into a state like deep sleep. It goes into the bloodstream (IV anesthetics), into the lungs (gas anesthetics),or both. You feel nothing during the procedure. You won't remember it either. During the procedure, the anesthesia provider monitors you continuously. They trackyour heart rate and rhythm, blood pressure, breathing, and blood oxygen. ??? IV anesthetics. IV anesthetics are given through an IV (intravenous) line in your arm. They???re often given first. This is so you're asleep before a gas anesthetic is started. Some kinds of IV anesthetics ease pain. Others relax you. Your healthcare provider will decide which kind is best in your case. ??? Gas anesthetics. Gas anesthetics are breathed into the lungs. They're often used to keep you asleep. They can begiven through a face mask. Or they can be given through a tube placed in your voice box (larynx) orbreathing tube (trachea). o Face mask. Your anesthesia provider will most likely place the face mask over your nose and mouth while you???re still awake. You???ll breathe oxygen through the mask as your IV anesthetic is started. Gas anesthetic may be added through the mask. o Tube in the larynx or trachea. The tube will be inserted into your throat after you???re asleep. ?? Anesthesia tools and medicines You will likely have: ??? IV anesthetics. These are put into an IV line into your bloodstream. ??? Gas anesthetics.??You breathe these??anesthetics??into your lungs. Then they pass into your bloodstream. ??? Pulse oximeter. This is a small clip that's attached to??the end of your finger. It measures your blood oxygen level. ??? Electrocardiography leads (electrodes). ??These are small sticky padsthat are placed??on your chest. They record your heart rate and rhythm. ??? Blood pressure cuff. This reads your blood pressure. ?? Risks and possible complications General anesthesia has some risks. These include: ??? Breathing problems ??? Upset stomach (nausea)and vomiting ??? Sore throat or hoarseness (usually temporary) ??? Allergic reaction to the anesthetic ??? Irregular heartbeat (rare) ??? Cardiac arrest (rare) ?? Anesthesia safety ??? Follow any directions you're given for not eating or drinking before your procedure. ??? Tell your healthcare provider what medicines??you take. This includes prescription and zcds-xhj-yygpnne medicines. It also includes vitamins, herbs, and other supplements. You'll be asked when those were last taken. ??? Have a trusted adult drive you home after the procedure. ??? For thefirst 24 hours after your surgery: o Don't drive or use heavy equipment. o Don't make important decisions or sign legal documents. If important decisions or signing legal documents is necessary during the first 24 hours after surgery, have a trusted family member or spouse act on your behalf. o Don't drink alcohol. o Have??a responsible adult??stay with you.??They can watch for problems and help keep you safe. ?? Last Reviewed Date: 2023 ?? [id number] [employer]. All rights reserved. This information is not intended as a substitute for professional medical care. Always follow your healthcare professional's instructions. ?? EKG study * Event Display: ECG 12-Lead Authored Date: [id number] Please click on pdf link to open report * Event Display: ECG 12-Lead Authored Date: Ventricular Rate: 65 BPM Atrial Rate: 65 BPM P-R Interval: 302 ms QRS Duration: 98 ms Q-T Interval: 428 ms QTC Calculation(Bazett): 445 ms P Richmond: 16 degrees R Richmond: 27 degrees T Richmond: 4 degrees Sinus rhythm with 1st degree A-V block Inferior infarct , age undetermined Abnormal ECG When compared with ECG of 29-Mar-2024 10:04, No significant change was found Confirmed by CEE PARSONS MD ([id number]) on 06/04/2024 11:59:02 AM [place]: CEE PARSONS MD Patient Care team information Care Team Personnel Name: Torres Snow MD Position: [facility] Outreach Member Role: PCP Address: [address] [place] [address] [place] [address]- Telecom: Care Team Related Persons Name: JOHANNJULITO Insurance Providers Guarantor name: AARON JOHANN Health Plan Information #: 1 Payer: HMO [employer] Member Number: [id number] Policy Number: NA Group Number: [id number] Health Plan Information #: 2 Payer: HMO [employer] Member Number: [id number] Policy Number: NA Group Number: [id number]
--- OUTSIDE RECORDS SUMMARY | 2024-06-15 14:56 | XMS_ITS | Patient Health Record ---
Author Organization [facility] Address [address] [place] [address] Care Team Providers Care Cable Dispatcher Name Role Phone Torres Snow MD Primary Care Provider Oliverio Lloyd Jr Unavailable ALLERGIES No Known Allergies REASON FOR REFERRAL No Information MEDICATIONS Medication SIG (Take, Route, Frequency, Duration) Notes Start Date End Date Status PriLOSEC OTC Active Allergy (Cetirizine) Active Lisinopril Active MiraLax (colon prep) 17 GM/SCOOP mixed with Gatorade or Crystal Light Orally begin at 5:00 p.m. the day before the procedure for 1 day 04/05/2021 Active IMMUNIZATIONS Vaccine Route Administration Date Status Comme nts Influenza Unknown 04/03/2021 Administered SOCIAL HISTORY Tobacco Use: Social History Observation Description Date Details (start date - stop date) Never Smoker NA - NA Sex Assigned At : Social History Observation Description Sex Assigned At Unknown Tobacco Use/Smoking Question Answer Notes Patient is a nonsmoker Alcohol Screen Question Answer Notes Did you have a drink contain ing alcohol in the past year? Yes How often did you have a dri nk containing alcohol in the past year? 4 or more times a week (4 points) How many drinks did you have on a typical day when you were drinking in the past year? 3 or 4 drinks (1 point) How often did you have 6 or more drinks on one occasion in the past year? Never (0 point) Points 5 Interpretation Positive PROBLEMS Problem Type ICD Code Onset Dates Problem Status W/U Status Risk SNOMED Code Notes Problem Colon cancer screening (Z12.11) Active confirmed 931858232 Problem Encounter for other preprocedural examination (Z01.818) Active confirmed 319364584 PLAN OF TREATMENT Future Test Test Name Order Date COLONOSCOPY 04/05/2021 Insurance Providers Payer Name Payer Address Payer Phone Subscriber Number Group Number Insured Name Patient Relationship to Insured Coverage Start Date Coverage End Date [facility] [address] [facility] [place] [phone] [id number] AARON WILLS Self - patient is the insured MEDICAL (GENERAL) HISTORY Medical History History ICD Code Gastroesophageal reflux disease without esophagitis hypertension Environmental allergies Surgical History Surgery Date(Month/Year)
[2024-06-15 15:28] LABS: Basophils Absolute Auto 0.1 X10*3/uL (0.0-0.2); Basophils Percent Auto 0.8 % (0-2); Eosinophils Absolute Auto 0.2 X10*3/uL (0.0-0.4); Eosinophils Percent Auto 2.5 % (0-4); Hematocrit 44.5 % (42.0-52.0); Hemoglobin 15.3 g/dl (14.0-18.0); Imm Gran Abs Auto 0.05 X10*3/uL (0.00-0.03); Imm Gran Pct Auto 0.6 % (0.0-0.4); Lymphocytes Absolute Auto 1.4 X10*3/uL (1.2-4.9); Lymphocytes Percent Auto 16.1 % (20-40); Mean Corpuscular HGB Conc 34.4 g/dl (31.0-36.0); Mean Corpuscular Hemoglobin 31.6 pg (27.0-33.0); Mean Corpuscular Volume 91.9 fL (80.0-98.0); Mean Platelet Volume 10.1 fL (9.4-12.4); Monocytes Absolute Auto 0.5 X10*3/uL (0.1-1.2); Monocytes Percent Auto 6.4 % (2-11); Neutrophils Absolute Auto 6.2 x10*3/uL (2.0-8.3); Neutrophils Percent Auto 73.6 % (45-73); Platelet Count 245 X10*3/uL (160-400); Red Blood Count 4.84 X10*6/uL (4.60-5.80); Red Cell Distribution Width 12.2 % (11.0-16.0); White Blood Count 8.4 X10*3/uL (4.8-10.8)
[2024-06-15 17:19] LABS: Alanine Aminotransferase 79 U/L (0-40); Albumin Level 4.6 g/dL (3.5-5.0); Alkaline Phosphatase 91 U/L (39-117); Anion Gap 9 (12-20); Aspartate Amino Transferase 40 U/L (5-37); Bilirubin Total 0.8 mg/dL (0.0-1.0); Blood Urea Nitrogen 17 mg/dL (9-16); Calcium 9.4 mg/dL (8.4-10.2); Carbon Dioxide 28 mmol/L (22-29); Chloride 106 mmol/L (96-108); Estimated Glomerular Filt Rate > 60; Glucose Random 72 mg/dL (60-115); Potassium 4.4 mmol/L (3.3-5.1); Sodium 139 mmol/L (135-145); Total Protein 7.6 g/dL (6.5-8.0)
== END 2024-06-15 13:55 | disposition home or self-care (01) ==
LOC: HO.LAB 13:54
PROVIDERS: PCP Internal Medicine; Visit Provider Internal Medicine
DX: Z13.89 Encounter for screening for other disorder (principal)
CPT/HCPCS: 36415; 80053; 85025

== ENCOUNTER 2024-07-06 12:58 | Outpatient (REF) | payer BC, SELFPAY ==
--- NOTE | ~2024-07-06 | US_ITS ---
CLINICAL HISTORY: N50.89 - EPIDIDYMAL MASS; CYST OF EPIDIDYMIS Scrotal ultrasound with vascular interrogation Comparison: None; if a prior study is submitted for review an addendum can be provided Findings: The testes are normal in echotexture without lesions. Normal arterial/venous color Doppler and flow pattern. Right testis size, mildly atrophic: 4.0 x 2.0 x 2.5 cm, volume of 10.4mL. Left testis size, normal: 4.1 x 2.1 x 3.0 cm, volume of 13.1mL. The epididymides are normal in size and echotexture. Normal color Doppler. Bilateral epididymal head cysts versus spermatoceles measuring 0.2 x 0.2 x 0.2 cm each. The mac developer reports a previously seen epididymal tail lesion on the left. No lesion is identified on this exam cm. On the cine images in the tail of the left epididymis there is tubular ectasia noted. No hydrocele. No varicocele. Impression: No acute findings. 0.2 cm epididymal head cysts versus spermatoceles. This document has been electronically signed by: Ludy Daniel MD on 07/07/2024 16:22:24
--- OUTSIDE RECORDS SUMMARY | 2024-07-06 16:05 | XMS_ITS | Patient Health Record ---
Author Organization [facility] Address [address] [place] [address] Care Team Providers Care Marine Engineering Technicians Name Role Phone Torres Snow MD Primary [...] Problem Colon cancer screening (Z12.11) Active confirmed [id number] Problem Encounter for other preprocedural examination (Z01.818) Active confirmed [id number] PLAN OF TREATMENT Future Test Test Name Order Date COLONOSCOPY 04/05/2021 Insurance Providers Payer Name Payer Address Payer Phone Subscriber Number Group Number Insured Name Patient Relationship to Insured Coverage Start Date Coverage End Date [facility] [address] [facility] [place] [phone] [id number] AARON WILLS Self - patient is the insured MEDICAL (GENERAL) HISTORY Medical History History ICD Code Gastroesophageal reflux disease without esophagitis hypertension Environmental allergies Surgical History Surgery Date(Month/Year)
== END 2024-07-06 12:59 | disposition home or self-care (01) ==
LOC: HO.US 12:58
PROVIDERS: PCP Internal Medicine; Visit Provider Nurse Practitioner Family
DX: N50.89 Other specified disorders of the male genital organs (principal); N50.3 Cyst of epididymis
CPT/HCPCS: 76870

== ENCOUNTER → 2024-07-06 12:59 | Outpatient (BNV) | payer BC, SELFPAY | PROVIDERS: PCP Internal Medicine; Visit Provider Radiology Diagnostic Radiology | DX: N50.89 Other specified disorders of the male genital organs (principal) | CPT/HCPCS: 76870 ==

== ENCOUNTER 2024-07-30 15:09 | Outpatient (AMB) | payer OTHER, SELFPAY ==
--- NOTE | 2024-07-30 15:11 | MHC.OFFVIS ---
Intake Visit Reasons: 6m/US Intake Note: Pt presents to the office today for a 6 month follow up/US. Allergies No Known Allergies Allergy (Verified 07/30/24 15:11) HPI Comments Details: Ga is a pleasant male. He is a patient of Dr. Snow. 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 Review of Systems Const Denies chills and Denies fever(s) Card Reports no additional complaints and Denies syncope Resp Denies cough GI Denies abdominal pain and Denies heartburn Reports as per HPI and Denies change in libido Neuro Denies syncope Psych Denies change in libido Endo Denies change in libido Physical Exam Const General: cooperative, healthy appearing, comfortable and no acute distress Orientation/consciousness: patient oriented x3 HEENT Face and sinus: Yes normal facial exam Mouth: moist mucous membranes Neck Neck: Yes normal visual inspection, Yes full ROM and Yes trachea midline Chest Chest palpation & inspection: normal inspection of the chest Resp Effort & Inspection: normal respiratory effort, able to speak in complete sentences and no respiratory distress GI Inspection: Yes normal to inspection Back/Spine/Pelvis Cervical Spine: normal cervical lordosis Thoracic/Lumbar Spine: thoracic and lumbar spine normal to inspection Skin General skin exam: no rashes or lesions noted Neuro General: patient oriented x3, gait normal, tone normal and moves all extremities Extrem General: Yes normal to inspection and Yes capillary refill normal Assessment & Plan Assessment & Plan (1) Epididymal cyst: Code(s): N50.3 - Cyst of epididymis Category: Medical (2) Epididymal mass: Code(s): N50.89 - Other specified disorders of the male genital organs Category: Medical Plan P.r.n. follow-up Patient Instructions: This note is constructed using voice recognition software. While every effort has been made to ensure accuracy film masker errors may have been included. Imaging studies, laboratory and physical exam results were discussed and reviewed in detail. No major barriers to patient understanding were identified. An opportunity to ask questions regarding the treatment plan was provided. All questions were answered. The patient expressed understanding and agreement with the above treatment plan. The patient is aware they should contact our office by phone for worsening of their current condition or the appearance of new urologic symptoms. Compliance is encouraged with any medications and followup testing that is ordered. It is a privilege to participate in the urologic care of your patient. If you have any questions or concerns regarding treatment for the above conditions, or other urologic issues, please do not hesitate to contact me. The office telephone contact is [phone]. Sincerely, Dr Alex Cordova MD, [facility] - Urology Compassionate Specialist Care for the Genitourinary System Coding Level of Care Code Est Pt Level 3 (22042) Diagnoses Epididymal cyst N50.3 Epididymal mass N50.89
== END 2024-07-30 15:23 | disposition home or self-care (01) ==
LOC: HO.HUSH 15:10
PROVIDERS: PCP Internal Medicine; Visit Provider Urology
DX: N50.3 Cyst of epididymis (principal); N50.89 Other specified disorders of the male genital organs
CPT/HCPCS: 99213

== ENCOUNTER → 2024-07-30 15:09 | Outpatient (BNVA) | payer BC, SELFPAY | PROVIDERS: PCP Internal Medicine; Visit Provider Urology ==

== ENCOUNTER 2024-09-21 14:55 | Outpatient (AMB) | payer BC, SELFPAY ==
[2024-09-21 15:10] VITALS: BP 120/80; PULSE 57; BMI 26.9
--- NOTE | 2024-09-21 15:10 | A.OFFVIS_ITS ---
Vital Signs 09/21/24 15:10 Height 5 ft 7 in Weight 171 lb 15.369 oz BMI 26.9 BP 120/80 Blood Pressure Location Lt brachial Position Sitting Pulse 57 Intake Visit Reasons: 4m follow up Intake Note: 4 month follow-up post ablation with ekg Contractor Buyer Required: No Allergies No Known Allergies Allergy (Verified 07/30/24 15:11) Medication List - Last Reconciled 09/21/24 by Mariano Baldwin MD amiodarone 100 mg PO DAILY apixaban (Eliquis) 5 mg PO BID losartan 100 mg PO DAILY HPI Comments Details: Ga comes for follow-up. He has been doing very well. He underwent ablation after I last saw him. He has had no recurrent atrial fibrillation. He maintains amiodarone at 100 mg daily. He says his energy level is good. He exercise on a regular basis. Denies any heart failure symptoms. No bleeding issues or neurologic events. 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 Review of Systems Const Denies chills, Denies fatigue, Denies fever(s), Denies frequent falls, Denies weakness, Denies weight gain and Denies weight loss ENT Denies dizziness Card Denies chest pain, Denies leg edema, Denies lightheadedness, Denies palpitations, Denies dyspnea, Denies dyspnea on exertion, Denies orthopnea and Denies other (loss of consciousness) Resp Denies cough, Denies dyspnea and Denies dyspnea on exertion GI Denies hematochezia and Denies change in stool character Musc Denies abnormal gait, Denies muscle weakness, Denies numbness, Denies radiating pain into limb and Denies tingling Neuro Denies abnormal gait, Denies dizziness, Denies frequent falls, Denies numbness, Denies tingling and Denies weakness Endo Denies fatigue and Denies palpitations Physical Exam Vital Signs: Last Vital Signs Pulse 57 09/21/24 15:10 BP 120/80 09/21/24 15:10 BMI result Body Mass Index 26.9 Const General: cooperative, comfortable, no acute distress, well developed, alert and awake Orientation/consciousness: patient oriented x3 HEENT Head: Yes normal to inspection, Yes normocephalic and Yes atraumatic Ears: hearing grossly normal bilaterally Eyes General: appearance normal, both eyes and all related structures Neck Neck: Yes normal visual inspection and Yes trachea midline Chest Chest palpation & inspection: normal inspection of the chest Resp Effort & Inspection: normal respiratory effort and able to speak in complete sentences Cardio Jugular venous distension: no JVD Palpation: normal PMI Rate: regular rate Rhythm: regular rhythm Heart sounds: S1 normal heart sound present, S2 normal heart sound present, no click, no gallops and Murmur heart sound present systolic mid, decrescendo and crescendo GI Inspection: Yes normal to inspection Other: as per HPI General: Yes no CVA tenderness Back/Spine/Pelvis Back: no CVA tenderness Skin General skin exam: no rashes or lesions noted Neuro General: patient oriented x3 Extrem General: Yes normal to inspection Psych Appearance: grossly normal and well kempt Mental Status: mental status grossly normal Speech and movement: Normal speech and movement present and Clear speech present Affect: normal affect Attitude: cooperative Thought process: Normal thought process present Thought content: Normal thought content present Insight: Fair insight present (Psych) Judgement: Fair judgement present (Psych) Office Procedures EKG Details: EKG shows normal sinus rhythm with first-degree AV block with rightward axis [id number], Complete Assessment & Plan Assessment & Plan (1) Paroxysmal atrial fibrillation: Code(s): I48.0 - Paroxysmal atrial fibrillation Category: Medical Plan: Longstanding persistent atrial fibrillation in the setting of elevated blood pressure and aortic stenosis, was long-lasting prior to conversion and required amiodarone to maintain rhythm. Since maintaining rhythm he has done extremely well with much improvement in his functionality and symptoms. 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 Underwent ablation to come off amiodarone therapy. Has maintain rhythm on low-dose amiodarone therapy. Plan would be switch him to class 1 C agent. Would like to perform a stress echocardiogram to assess for myocardial ischemia prior to switch him him to class 1 C agents. This was discussed with him. He understands agrees. 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 Continue full oral anticoagulation, currently on Eliquis 5 mg b.i.d.. Continue aggressive blood pressure control which is currently well optimized on losartan. Continue maintain activity level as tolerated. Avoidance of stimulants was discussed. He understands management plan very well. (2) Aortic stenosis: Code(s): I35.0 - Nonrheumatic aortic (valve) stenosis Category: Medical Plan: Aortic stenosis which is probably moderate by clinical exam. Related to bicuspid aortic valve. Follow-up echocardiogram in November. Continue aggressive risk factor modification. Continue full oral anticoagulation as prescribed. Will follow up in the clinic in 3 months time, sooner p.r.n.. Thank you for allowing me to partake in his care Orders: Orders CA echo transthoracic complete 2 Months I35.0 - Nonrheumatic aortic (valve) stenosis CA echo stress exercise 1 Week I35.0 - Nonrheumatic aortic (valve) stenosis Medications: Changed From amiodarone 200 mg PO DAILY 30 tabs 5RF To amiodarone 100 mg PO DAILY Coding Level of Care Code Est Pt Level 4 (64169) Complex EM visit Add On G2211 Diagnoses Paroxysmal atrial fibrillation I48.0 Aortic stenosis I35.0 CPT Codes EKG - CPT: 47925-Afizuoyxskvuntgfe, Complete ([id number])
--- OUTSIDE RECORDS SUMMARY | 2024-09-21 16:05 | XMS_ITS | Patient Health Record ---
Author Organization [facility] Address [address] [place] [address] Care Team Providers Care Senior Research Engineer Name Role Phone Torres Snow MD Primary Care Provider Oliverio Lloyd Jr Unavailable Allergies No Known Allergies Reason For Referral No Information Medications Medication SIG (Take, Route, Frequency, Duration) Notes Start Date End Date Status PriLOSEC OTC Active Allergy (Cetirizine) Active Lisinopril Active MiraLax (colon prep) 17 GM/SCOOP mixed with Gatorade or Crystal Light Orally begin at 5:00 p.m. the day before the procedure for 1 day 04/05/2021 Active Immunizations Vaccine Route Administration Date Status Comme nts Influenza Unknown 04/03/2021 Administered Social History Tobacco Use: Social History Observation Description Date Details (start date - stop date) Never Smoker NA - NA Tobacco Use/Smoking Question Answer Notes Patient is [...] Never (0 point) Points 5 Interpretation Positive Problems Problem Type SNOMED Code ICD Code Onset Dates Problem Status W/U Status Risk Notes Problem [id number] Colon cancer screening (Z12.11) Active confirmed Problem [id number] Encounter for other preprocedural examination (Z01.818) Active confirmed Plan Of Treatment Future Test Test Name Order Date COLONOSCOPY 04/05/2021 Insurance Providers Payer Name Payer Address Payer Phone Subscriber Number Group Number Insured Name Patient Relationship to Insured Coverage Start Date Coverage End Date [facility] [address] [place] [phone] [id number] AARON WILLS Self - patient is the insured Medical (General) History Medical History History ICD Code Gastroesophageal reflux disease without esophagitis hypertension Environmental allergies Surgical History Surgery Date(Month/Year)
== END 2024-09-21 15:33 | disposition home or self-care (01) ==
LOC: HO.HCS 14:56
PROVIDERS: PCP Internal Medicine; Visit Provider Internal Medicine Cardiovascular Disease
DX: I48.0 Paroxysmal atrial fibrillation (principal); I35.0 Nonrheumatic aortic (valve) stenosis
CPT/HCPCS: 93010; 99214

== ENCOUNTER → 2024-09-21 14:55 | Outpatient (BNVA) | payer BC, SELFPAY | PROVIDERS: PCP Internal Medicine; Visit Provider Internal Medicine Cardiovascular Disease | DX: I48.0 Paroxysmal atrial fibrillation (principal) | CPT/HCPCS: 93005 ==

== ENCOUNTER → 2024-11-10 10:52 | Outpatient (REF) | payer BC, SELFPAY ==
--- NOTE | 2024-11-10 10:55 | CA_ITS ---
Acquisition Time: 2024-11-10 11:47:01 Total Exercise Time: 00:09:30 Test Indications: AFIB Medications: AMIODARONE LOSARTAN APIXABAN Protocol: VIJAY Max HR: 137 BPM 87% of Pred: 157 BPM Max BP: 132/80 mmHG Max Work Load: 10.9 METS Exercise stress test with exercise 9 mins 30 secs of Vijay Protocol, achieving 89% MPHR, with reports of SOB, no chest pain, with isolated PVCs, with normotensive repsonse to exercise. Without EKG changes meeting criteria for ischemia. In recovery, pt's breathing returned to baseline. Echo images were obtained by tech at rest and post peak exercise. Definity contrast utilized. Test reviewed with Dr. Hernandez. Referred By: Mariano Baldwin Electronically Signed By: Bernardo Vicente
--- OUTSIDE RECORDS SUMMARY | 2024-11-10 11:59 | XMS_ITS | Patient Health Record ---
Author Organization [facility] Address [address] [place] [address] Care Team Providers Care Vp Cardiovascular Service Line Name Role Phone Torres Snow MD Primary [...] Problem Status W/U Status Risk Notes Problem [id number] Colon cancer screening (Z12.11) Active confirmed Problem [id number] Encounter for other preprocedural examination (Z01.818) Active confirmed Plan Of Treatment Future Test Test Name Order Date COLONOSCOPY 04/05/2021 Insurance Providers Payer Name Payer Address Payer Phone Subscriber Number Group Number Insured Name Patient Relationship to Insured Coverage Start Date Coverage End Date [facility] [address] [place] [phone] [id number] AARON WILLS Self - patient is the insured Medical (General) History Medical History History ICD Code Gastroesophageal reflux disease without esophagitis hypertension Environmental allergies Surgical History Surgery Date(Month/Year)
== END ==
LOC: HO.CARD 10:52
PROVIDERS: PCP Internal Medicine; Visit Provider Internal Medicine Cardiovascular Disease
DX: I35.0 Nonrheumatic aortic (valve) stenosis (principal); Z00.00 Encounter for general adult medical examination without abnormal findings; I48.0 Paroxysmal atrial fibrillation; I10 Essential (primary) hypertension; K21.9 Gastro-esophageal reflux disease without esophagitis
CPT/HCPCS: 93350; Q9957

== ENCOUNTER → 2024-11-10 10:55 | Outpatient (BNV) | payer BC, SELFPAY | PROVIDERS: PCP Internal Medicine | DX: I48.91 Unspecified atrial fibrillation (principal); R06.02 Shortness of breath; I49.3 Ventricular premature depolarization | CPT/HCPCS: 93016; 93018; 93350; 93352 ==

== ENCOUNTER 2024-11-10 15:12 | Outpatient (AMB) | payer BC, SELFPAY ==
[2024-11-10 10:45] VITALS: BP 118/70; PULSE 67; TEMP 36.1; O2SAT 98; BMI 27.2
--- NOTE | 2024-11-10 10:45 | MHC.PC.OV ---
Vital Signs 11/10/24 10:45 Height 5 ft 7 in Weight 174 lb BMI 27.2 BP 118/70 Blood Pressure Location Lt brachial Position Sitting Pulse 67 Pulse Source Pulse Oximeter Temp 97 F Temp Source Axillary Pulse Oximetry (%) 98 Oxygen Delivery Method Room Air Intake Visit Reasons: Annual Graphics Coordinator Required: No Accompanied by: Self / Same As Patient Allergies No Known Allergies Allergy (Verified 11/10/24 15:27) Medication List - Last Reconciled 11/10/24 by Kota Shultz MD amiodarone 100 mg PO DAILY apixaban (Eliquis) 5 mg PO BID losartan 100 mg PO DAILY Tobacco use date assessed: 11/10/24 Dental Screening Dental Screen Date: 11/10/24 Did you have a dental visit in the last 12 months?: Yes Did you have a dental problem in the last 6 months where you did not have access to dental care?: No PFSH Medical History Paroxysmal atrial fibrillation Persistent atrial fibrillation GERD (gastroesophageal reflux disease) HTN (hypertension) Surgical History Hx of colonoscopy (~05/08/21) Family History Mother No problems noted. Father No problems noted. 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 1. Little interest or pleasure in doing things: not at all 2. Feeling down, depressed, or hopeless: not at all 3. Trouble falling or staying asleep, or sleeping too much: not at all 4. Feeling tired or having little energy: not at all 5. Poor appetite or overeating: not at all 6. Feeling bad about yourself - or that you are a failure or have let yourself or your family down: not at all 7. Trouble concentrating on things, such as reading the newspaper or watching television: not at all 8. Moving or speaking so slowly that other people could have noticed. Or the opposite - being so fidgety or restless that you have been moving around a lot more than usual: not at all 9. Thoughts that you would be better off or of hurting yourself in some way: not at all Total score: 0 Depression Screening Interpretation: Negative Depression Screening Done: Yes Source: Developed by Drs. Bjorn Ocampo, Jessica Andrews, Yogi Rico and colleagues, with an educational jason from [email or web address]. Thrive Questionnaire Date Thrive assessed: 11/10/24 I am a: Patient Within the past 12 months, did the food you bought not last and you didn't have the money to get more?: Never true Within the past 12 months, did you worry whether your food would run out before you got money to buy more?: Never true Do you have trouble paying for medicines?: No Do you have trouble getting transportation to medical appointments?: No Do you have trouble paying your heating and electricity bill?: No Do you have trouble taking care of your child, family member or friend?: No Do you have trouble with day-to-day activities such as bathing, preparing meals, shopping, managing finances, etc.?: No Are you currently unemployed and looking for a job?: No Are you interested in more education?: No Currently or been in a relationship where the following occur: No concerns reported THRIVE Score: 0 AUDIT C Alcohol Use Questionnaire (AUDIT-C) 1. How often do you have a drink containing alcohol?: Monthly or less 2. How many drinks containing alcohol do you have on a typical day when you are drinking?: 1 or 2 3. How often do you have six or more drinks on one occasion?: Less than monthly Total Score: 2 GAMALIEL-7 AMB Questionnaire GAMALIEL-7 Date GAMALIEL - 7 assessed: 11/10/24 Feeling nervous, anxious, or on edge: 0 = Not at all Not being able to stop or control worryin = Not at all Worrying too much about different things: 0 = Not at all Trouble relaxin = Not at all Being so restless that it is hard to sit still: 0 = Not at all Becoming easily annoyed or irritable: 0 = Not at all Feeling afraid as if something awful might happen: 0 = Not at all Total GAMALIEL-7 score (0-4 normal; 5-9 mild; 10-14 moderate; 15-21 severe): 0 Source: Developed by Drs. Bjorn Ocampo, Jessica Andrews, Yogi Rico and colleagues, with an educational jason from [email or web address]. Physical exam (Primary Care) Vital Signs: Last Vital Signs Temp 97 F 11/10/24 10:45 Pulse 67 11/10/24 10:45 BP 118/70 11/10/24 10:45 Pulse Ox 98 11/10/24 10:45 Oxygen Delivery Method Room Air 11/10/24 10:45 Care Plan Goal for BP management: BP in range BMI result Body Mass Index 27.2 Tobacco/Smoking Status: Tobacco use Status Tobacco use date assessed 11/10/24 11/10/24 10:46 Patient Tobacco Use Status Never used Tobacco 11/10/24 10:46 e-Cigarette/Vaping Use Never Used 11/10/24 10:46 PHQ-9: PHQ-9 Score PHQ-9: Total score 0 11/10/24 15:18 Depression Screening Interpretation: Negative Thrive Assessment: Date of Thrive Assessment Date Thrive assessed 11/10/24 11/10/24 10:46 Currently or been in a relationship where the following occur: No concerns reported Advance Care Planning discussion: Exists, not on file Date of discussion: 11/10/24 Forms completed: Health Care Proxy and MOLST Time spent: 1-15 minutes, not on file Actual minutes spent: 5 Coding Level of Care Code New Pt Prev Care 40-64y(69953) Diagnoses Annual physical exam Z00.00 Additional Codes Vital Signs *Quality* - Advance Care Planning discussion: Exists, not on file ([id number]) Vital Signs *Quality* - Time spent: 1-15 minutes, not on file ([id number]) Assessment & Plan Assessment & Plan (1) Annual physical exam: Code(s): Z00.00 - Encounter for general adult medical examination without abnormal findings Plan: History of Present Illness - The patient is a 64-year-old male presenting with a physical examination and follow-up on atrial fibrillation management. - Atrial Fibrillation: Diagnosed less than two years ago, managed with apixaban, amiodarone, and losartan. Ablation in June resulted in sinus rhythm, no recurrence of atrial fibrillation. Plans to discontinue amiodarone under Dr. Baldwin's guidance. - Aortic Stenosis: Soft heart murmur noted, patient is under monitoring. - Mitral Regurgitation: Mentioned in conjunction with aortic stenosis. - Preventative care: Colonoscopy performed three years ago, blood work in June showed slight elevation in thyroid and kidney functions, attributed to amiodarone. - Family history: Mother had uterine and lung cancer, diagnosed with lung disease, was a smoker but quit. - Exercise: Walks 2.5 miles every morning. 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 - Exercise: Walks 2.5 miles every morning. - Family: Has three grown children, one daughter and two sons. Review of Systems - Cardiovascular: Denies chest pain, orthopnea, or syncope. - Respiratory: Denies dyspnea, cough, or wheezing. - Neurological: Denies visual disturbances such as halos around lights. Physical Exam General: Cooperative and healthy appearing Nutritional Appearance: Well nourished Orientation/consciousness: Patient oriented x3 Limitations: No limitations Head: Normal to inspection General: Appearance normal, both eyes and all related structures Neck: Normal visual inspection Chest: Normal palpation of entire chest wall Respiratory: Soft heart murmur, aortic stenosis ormal respiratory effort Neurology: Patient oriented x3 Ht: S1 S2, ESM 2/ Results - Labs: Blood work in June showed slight elevation in thyroid and kidney functions. - Procedures: Echocardiogram stress test conducted on the day of the visit. Plan 1. Atrial Fibrillation - Continue current medications: apixaban and losartan. - Plan to discontinue amiodarone under Dr. Baldwin's guidance. - Follow-up appointment with Dr. Baldwin scheduled for further management. 2. Aortic Stenosis - Monitoring of heart murmur and aortic stenosis by engine wiper. 3. Preventative Care - Colonoscopy performed three years ago, no immediate need for repeat. - Referral to lime sludge kiln operator for annual skin screening due to insurance changes. Discussion Notes During the visit, we discussed the management of atrial fibrillation, including the continuation of apixaban and losartan, and the plan to discontinue amiodarone under Dr. Baldwin's guidance. We also reviewed the patient's aortic stenosis and the need for ongoing monitoring by a engine wiper. Preventative care measures were addressed, including the recent colonoscopy and the need for a dermatology referral for annual skin screening. The patient was advised to keep the follow-up appointment with Dr. Baldwin for further management of his conditions. Patient Instructions - Continue taking apixaban and losartan as prescribed. - Attend the follow-up appointment with Dr. Baldwin for further management of atrial fibrillation. - Schedule an appointment with the referred lime sludge kiln operator for annual skin screening.
== END 2024-11-10 16:04 | disposition home or self-care (01) ==
LOC: HO.HMCHD 15:12
PROVIDERS: PCP Internal Medicine; Visit Provider Internal Medicine
DX: Z00.00 Encounter for general adult medical examination without abnormal findings (principal)

== ENCOUNTER → 2024-11-15 13:54 | Outpatient (REF) | payer BC, SELFPAY ==
--- NOTE | 2024-11-15 13:57 | CA_ITS ---
Transthoracic Echocardiogram Patient (Last, First, Middle): Ga Velásquez A Gender: Male Date of : 1960 Age: 64 Procedure Date: 11/15/2024 Procedure Type: Transthoracic Echocardiogram Location: OP Height: 170.18 cm Weight: 78.02 kg BSA: 1.90 m2 Heart Rate: bpm BP: 122 / 80 mmHg Public Employment Mediator: Referring MD: Mariano Baldwin MD Symptoms: I35.0 - Nonrheumatic aortic (valve) stenosis Study Quality: Adequate ECG Rhythm: Sinus Conclusions: - The left ventricular systolic function is normal. The calculated ejection fraction is 64% by biplane method. - Moderate aortic stenosis, probably from bicuspid aortic valve. Due to calcification, difficult to delineate the raphe. Findings Left Ventricle Normal left ventricular cavity size. There is mildly increased left ventricular wall thickness. The left ventricular systolic function is normal. The calculated ejection fraction is 64% by biplane method. There is no evidence of regional wall motion abnormalities. Diastolic function is normal for age. Right Ventricle Normal right ventricular cavity size and systolic function. Atria The left atrium is mildly dilated. The right atrium is normal in size. Aortic Valve There is moderate calcification of the aortic valve. The peak aortic velocity is 3.60 m/s with a calculated peak gradient of 52 mmHg. The mean gradient is 33 mmHg. The aortic valve area is 1.80 cm2. There is no aortic valve regurgitation. Dimensionless index 0.38. Probable bicuspid aortic valve. Larger than expected aortic valve area, likely due to large LVOT diameter. Mitral Valve The mitral valve appears normal. There is no mitral valve regurgitation. There is no mitral valve stenosis. Pulmonic Valve The pulmonic valve is likely normal. Tricuspid Valve Normal tricuspid valve structure. There is trace tricuspid valve regurgitation. There is no evidence of pulmonary hypertension. Great Vessels The asc aorta and aortic arch are normal in size. Venous The inferior vena cava is normal in size and collapses greater than 50% with inspiration. Pericardium/Pleural There is no evidence of pericardial effusion. Prior Study Comparison Changes noted compared to prior study dated: 11/04/2023. Some progression of aortic stenosis. Measurements 2D Linear Measurements IVSd: 1.28 0.6-0.9/0.6-1.0 cm LVIDd: 3.91 3.9-5.3/4.2-5.9 cm LVIDd Index: 2.06 2.4-3.2/2.2-3.1 cm/m2 LVIDs: 2.56 2.0-3.6 cm LVPWd: 1.28 0.7-1.1 cm Ao Root: 3.10 2.1-3.5 cm LA Diam: 3.90 2.7-3.8/3.0-4.0 cm LAIDs Index: 2.05 1.5-2.3 cm/m2 LV Mass: 219.51 67-162/88-224 g LV Mass Index: 115.53 43-95/49-115 g/m2 LVOT Diam: 2.40 3.0+(-)1.3 cm 2D Systolic Function EF 4C: 63.00 >55% EF 2C: 64.90 >55% EF BiP: 64.20 >55% Mitral Valve MV Pk E: 0.86 MV PK A: 0.55 MV Decel Time: 191.00 E/A: 1.50 E'Lateral: 7.94 E'Medial: 8.92 E/E' Med: 9.60 E/E' Lat: 10.80 PHT: 56.00 MVA PHT: 3.93 Decel Cache: 4.48 Aortic Valve AoV Pk Gregorio: 3.60 AoV Mn Gregorio: 2.67 AoV VTI: 0.86 AoV Pk Grad: 52.00 Aov Mn Grad: 33.00 ESTHELA Cont.VTI: 1.80 LVOT LVOT Pk Gregorio: 1.37 LVOT Mn Gregorio: 0.99 LVOT VTI: 0.34 LVOT Pk Grad: 8.00 LVOT Mn Grad: 5.00 LVOT Diam: 2.40 LVOT Area: 4.52 Diastolic Function MV Pk E: 0.86 MV Pk A: 0.55 E/A: 1.50 E'Medial: 8.92 E/E' Med: 9.60 E' Laterial: 7.94 E/E' Lat: 10.80 Right Ventricle TAPSE (mm): 33.00 TVS' Gregorio: 15.00 Tricuspid Valve TR Pk Gregorio: 2.14 TR Pk Grad: 18.00 RA Press: 3.00 RVSP: 21.00 Great Vessels Aorta Ao Root-2D: 3.10 2.0-3.7 cm Ao Asc: 3.30 2.1-3.4 cm Ao Arch: 3.40 Pulmonary Valve PV Pk Gregorio: 1.16 Peak PV Grad: 5.00 Updated in Other Vendor System with Status of Final Thai Delcid MD electronically signed on 11/16/2024 10:49:32 AM with status of Final
--- OUTSIDE RECORDS SUMMARY | 2024-11-15 15:11 | XMS_ITS | Patient Health Record ---
Author Organization [facility] Address [address] [place] [address] Care Team Providers Care Dross Puller Name Role Phone Edy (RETIRED) Torres HASTINGS Primary Care Provide Oliverio Ortega Jr Unavailable [phone] Allergies No Known Allergies Reason For Referral [...] Problem Status W/U Status Risk Notes Problem [id number] Colon cancer screening (Z12.11) Active confirmed Problem [id number] Encounter for other preprocedural examination (Z01.818) Active confirmed Plan Of Treatment Future Test Test Name Order Date COLONOSCOPY 04/05/2021 Insurance Providers Payer Name Payer Address Payer Phone Subscriber Number Group Number Insured Name Patient Relationship to Insured Coverage Start Date Coverage End Date [facility] [address] [facility] [place] [phone] [id number] AARON WILLS Self - patient is the insured Medical (General) History Medical History History ICD Code Gastroesophageal reflux disease without esophagitis hypertension Environmental allergies Surgical History Surgery Date(Month/Year)
== END ==
LOC: HO.CARD 13:54
PROVIDERS: Visit Provider Internal Medicine Cardiovascular Disease
DX: I35.0 Nonrheumatic aortic (valve) stenosis (principal)
CPT/HCPCS: 93306

== ENCOUNTER → 2024-11-15 13:57 | Outpatient (BNV) | payer BC, SELFPAY | PROVIDERS: Visit Provider Internal Medicine | DX: I35.0 Nonrheumatic aortic (valve) stenosis (principal); Q23.81 Bicuspid aortic valve | CPT/HCPCS: 93306 ==

== ENCOUNTER 2024-11-22 15:14 | Outpatient (AMB) | payer BC, SELFPAY ==
--- NOTE | 2024-11-22 15:19 | A.OFFVIS_ITS ---
Vital Signs 11/22/24 15:20 Height 5 ft 7 in Weight 174 lb 2.643 oz BMI 27.3 BP 110/70 Blood Pressure Location Lt brachial Position Sitting Pulse 70 Intake Visit Reasons: s/p stress echo/ echo Intake Note: Follow-up stress echo and echo feeling good with ekg Regional Clinical Director Required: No Allergies No Known Allergies Allergy (Verified 11/10/24 15:27) Medication List - Last Reconciled 11/22/24 by Mariano Baldwin MD amiodarone 100 mg PO DAILY apixaban (Eliquis) 5 mg PO BID losartan 100 mg PO DAILY HPI Comments Details: Ga comes for follow-up. He has been doing very well from cardiac perspective. He has no exertional symptoms. Recently underwent a stress test which at high workload was negative for ischemia. His echo showed moderate aortic stenosis with mild LVH with enlarged left atrium. He has had no prolonged irregular heartbeat or palpitations. No bleeding issues or neurologic event. Takes all his medications. Comes to discuss further treatment options. [facility] Medical History Paroxysmal atrial fibrillation Persistent atrial fibrillation GERD (gastroesophageal reflux disease) HTN (hypertension) Surgical History Hx of colonoscopy (~05/08/21) Family History Mother No problems noted. Father No problems noted. 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 Cognitive needs: No Hearing needs: No Vision needs: Yes (rx glasses) Review of Systems Const Denies chills, Denies fatigue, Denies fever(s), Denies frequent falls, Denies weakness, Denies weight gain and Denies weight loss ENT Denies dizziness Card Denies chest pain, Denies leg edema, Denies lightheadedness, Denies palpitations, Denies dyspnea, Denies dyspnea on exertion, Denies orthopnea and Denies other (loss of consciousness) Resp Denies cough, Denies dyspnea and Denies dyspnea on exertion GI Denies hematochezia and Denies change in stool character Musc Denies abnormal gait, Denies muscle weakness, Denies numbness, Denies radiating pain into limb and Denies tingling Neuro Denies abnormal gait, Denies dizziness, Denies frequent falls, Denies numbness, Denies tingling and Denies weakness Endo Denies fatigue and Denies palpitations Physical Exam Vital Signs: Last Vital Signs Pulse 70 11/22/24 15:20 BP 110/70 11/22/24 15:20 BMI result Body Mass Index 27.3 Const General: cooperative, comfortable, no acute distress, well developed, alert and awake Orientation/consciousness: patient oriented x3 HEENT Head: Yes normal to inspection, Yes normocephalic and Yes atraumatic Ears: hearing grossly normal bilaterally Eyes General: appearance normal, both eyes and all related structures Neck Neck: Yes normal visual inspection and Yes trachea midline Chest Chest palpation & inspection: normal inspection of the chest Resp Effort & Inspection: normal respiratory effort and able to speak in complete sentences Cardio Jugular venous distension: no JVD Palpation: normal PMI Rate: regular rate Rhythm: regular rhythm Heart sounds: S1 normal heart sound present, S2 normal heart sound present, no click, no gallops and Murmur heart sound present systolic mid, decrescendo and crescendo GI Inspection: Yes normal to inspection Other: as per HPI General: Yes no CVA tenderness Back/Spine/Pelvis Back: no CVA tenderness Skin General skin exam: no rashes or lesions noted Neuro General: patient oriented x3 Extrem General: Yes normal to inspection Psych Appearance: grossly normal and well kempt Mental Status: mental status grossly normal Speech and movement: Normal speech and movement present and Clear speech present Affect: normal affect Attitude: cooperative Thought process: Normal thought process present Thought content: Normal thought content present Insight: Fair insight present (Psych) Judgement: Fair judgement present (Psych) Office Procedures EKG Details: EKG shows normal sinus rhythm with first-degree AV block at 70 beats per minute [id number], Complete Assessment & Plan Assessment & Plan (1) Paroxysmal atrial fibrillation: Code(s): I48.0 - Paroxysmal atrial fibrillation Category: Medical Plan: Highly symptomatic paroxysmal atrial fibrillation with mostly symptoms of reduced exercise tolerance. This has done extremely well with rhythm control approach with normalized aerobic conditioning and functioning. At this point time will continue pursue rhythm control approach. Status post ablation. His stress echocardiogram at high workload was negative for ischemia with. Will pursue with class 1 C agent will start on flecainide 100 mg b.i.d. after 2 days of stopping amnio. Start also concomitant low-dose metoprolol therapy to reduce rapid conduction of atrial flutter. This was discussed with him. Possible recurrence of atrial fibrillation was discussed he understands. Continue aggressive control blood pressure. Continue full oral anticoagulation, currently on Eliquis 5 mg b.i.d.. Semi annual renal function test should be pursued. Stress mitigation strategies to be pursued be avoidance of stimulants to be pursued. (2) Aortic stenosis: Code(s): I35.0 - Nonrheumatic aortic (valve) stenosis Category: Medical Plan: Aortic stenosis which remains moderate. Continue monitor clinically. Cardinal symptoms associated with aortic stenosis were discussed. Understands manag ement. Continue risk factor modification. Target goal LDL less than 100 mg/dL. Will follow annually by echocardiogram. Follow up in the clinic in 2 weeks' time for EKG and in 6 months time for c linical follow-up. Medications: New flecainide 100 mg PO Q12H 60 tabs 5RF metoprolol succinate ER (Toprol XL) 25 mg PO DAILY 30 tabs 5RF Coding Level of Care Code Est Pt Level 4 (03683) Complex EM visit Add On G2211 Diagnoses Paroxysmal atrial fibrillation I48.0 Aortic stenosis I35.0 CPT Codes EKG - CPT: 48746-[id number], Complete ([id number])
[2024-11-22 15:20] VITALS: BP 110/70; PULSE 70; BMI 27.3
--- OUTSIDE RECORDS SUMMARY | 2024-11-22 15:50 | XMS_ITS | Clinical Summary ---
Author Organization [facility] Address [address] [place] [id number] Phone Care Team Providers Care Pig Handler Name Role Phone Torres Snow MD Primary Care Provider Allergies No known active allergies Medications losartan (COZAAR) 100 MG tablet Take 100 mg by mouth daily. 12/23/2019 Active amiodarone (PACERONE) 200 MG tablet Take 200 mg by mouth daily. Active ELIQUIS 5 mg tablet Take 5 mg by mouth 2 (two) times a day. Active metroNIDAZOLE (METROCREAM) 0.75 % cream APPLY TO THE FACE ONCE A DAY. 08/10/2024 Active Active Problems No known active problems Encounters Date Type Department Care Team Description 08/26/2024 9:37 AM EDT - 08/26/2024 11:59 PM EDT Hospital Encounter [facility] [address] [place] [address] Sabiha Lopez NP Discharge Disposition: Home or Self Care 08/26/2024 Orders Only [facility] [address] [place] [phone] Mir Norris Diarrhea, unspecified type 08/25/2024 11:53 AM EDT - 08/25/2024 11:59 PM EDT Hospital Encounter [facility] [address] [place] [address] Sabiha Lopez NP Discharge Disposition: Home or Self Care 08/25/2024 10:50 AM EDT Office Visit [facility] [address] [address] Sabiha Lopez NP Diarrhea, unspecified type (Primary Dx) 08/25/2024 Orders Only [facility] [address] [place] [address] Mir Norris Diarrhea, unspecified type from Last 3 Months Social History Tobacco Use Types Packs/Day Years Used Date Smoking Tobacco: Never Smokeless Tobacco: Never Tobacco Cessation:Counseling Given: Not Answered Education Answer Date Recorded Are you interested in more education? Not on marti e 08/30/2022 Are you concerned about learning? Not on file 08/30/2022 No 08/30/2022 No 08/30/2022 Digital Access Answer Date Recorded No 09/28/2022 No 09/28/2022 Reliable internet access at home? Not on file 09/28/2022 Device with a working camera? Not on file Sex and Gender Information Value Date Recorded Sex Assigned at Not on file Legal Sex Male 12:01 PM EST Gender Identity Not on file Sexual Orientation Not on file Last Filed Vital Signs Vital Sign Reading Time Taken Comments Blood Pressure 121/85 08/25/2024 11:21 AM EDT Pulse 60 08/25/2024 11:21 AM EDT Temperature 36.7 C (98 F) 08/25/2024 11:21 AM EDT Respiratory Rate 16 08/25/2024 11:21 AM EDT Oxygen Saturation 98% 08/25/2024 11:21 AM EDT Inhaled Oxygen Concentration - - Weight 77.1 kg (170 lb) 08/25/2024 11:21 AM EDT Height 170.2 cm (5' 7 ) 08/25/2024 11:21 AM EDT Body Mass Index 26.63 08/25/2024 11:21 AM EDT Plan of Treatment Health Maintenance Due Date Last Done Comments ALT LEVEL (ALANINE AMINOTRANSFERASE) 1960 Adult Td,Tdap Booster 1960 CREATININE LEVEL 1960 LIPID PANEL 1960 POTASSIUM LEVEL 1960 DEPRESSION SCREENING 1973 HEPATITIS C SCREENING 10/19/1979 HIV ONE-TIME SCREENING (18-6 5 YEARS) 10/19/1979 SCREENING FOR DIABETES 1996 COLOGUARD 2006 COLONOSCOPY 2006 COLORECTAL CANCER SCREENING 2006 FIT TEST 2006 FOBT 2006 SIGMOIDOSCOPY 2006 VIRTUAL COLONOSCOPY 2006 ZOSTER VACCINES (1 of 2) 10/19/2011 COVID-19 VACCINE (2023-2 5 season) 2024 04/03/2021, 09/11/2020, 08/14/2020 TSH LEVEL 08/25/2025 08/25/2024 RSV VACCINE (1 - 1-dose 75+ series) 2036 PNEUMOCOCCAL VACCINES (50+ years) Completed 06/16/2024 SMOKING STATUS SCREENING (On ce After 26 Yrs) Completed 08/25/2024 HEPATITIS A VACCINES Aged Out No long er eligible based on patient's age to complete this topic HIB VACCINES Aged Out No longer eligi ble based on patient's age to complete this topic MENINGOCOCCAL VACCINES (ACWY) Aged Out No longer eligible based on patient's age to complete this topic MENINGOCOCCAL VACCINES (B) Aged Out N o longer eligible based on patient's age to complete this topic Medical Devices Not on file Procedures Procedure Name Priority Date/Time Associated Diagnosis Comments STOOL FAT, MUSCLE, FIBER Routine 08/26/2024 9:38 AM EDT OVA AND PARASITES, STOOL Routine 08/26/2024 7:45 AM EDT Diarrhea, unspecified type FECAL LEUKOCYTE EXAMINATION Routine 08/26/2024 7:45 AM EDT Diarrhea, unspecified type STOOL CULTURE Routine 08/26/2024 7:45 AM EDT Diarrhea, unspecified type C-REACTIVE PROTEIN Routine 08/25/2024 11 :53 AM EDT Diarrhea, unspecified type SEDIMENTATION RATE (ESR) Routine 08/25/2024 11:53 AM EDT Diarrhea, unspecified type TSH WITH REFLEX Routine 08/25/2024 11:53 AM EDT Diarrhea, unspecified type from Last 3 Months Results * Stool fat/fiber exam (08/26/2024 9:38 AM EDT) FATTY ACID NORMAL NORMAL [facility] Neutral Fat, stool NORMAL NORMAL [facility] 08/26/2024 9:38 AM EDT 08/26/2024 11:57 AM EDT Sabiha Lopez NP BODY FLUIDS AND STOOLS ORD ERABLES Final Result Performing Organization Address City/[facility]/ZIP Co de Phone Number [address] [address] * Fecal leukocyte examination (08/26/2024 7:45 AM EDT) Special Requests None 08/26/2024 9:38 AM EDT [facility] GRAM STAIN No WBC seen on smear. 08/27/2024 10:48 AM EDT [facility] Stool (Stool) 08/26/2024 7:4 5 AM EDT 08/26/2024 9:40 AM EDT Sabiha Lopez NP MICROBIOLOGY - GENERAL ORD ERABLES Final Result Performing Organization Address [facility] Co de Phone Number [address] [address] * Ova and parasites, stool (08/26/2024 7:45 AM EDT) Parasitic exam FINAL 5 1222 [facility] DPT OF LAB MED AND PAT+ Comment: (NOTE) SOURCE: STOOL, STLP OVA AND PARASITE, MICROSCOPY, F FINAL No parasites seen. Cryptosporidium, Cyclospora, and microsporidia are not readily detected by this method. Single negative specimen does not rule out parasitic infection. Stool (Stool) 08/26/2024 7:4 5 AM EDT 08/26/2024 9:40 AM EDT us Sabiha Lopez NP MICROBIOLOGY - GENERAL ORD ERABLES Final Result [facility] DPT OF LAB MED AND PAT+ [address] [place] [address] * Stool culture (08/26/2024 7:45 AM EDT) Special Requests None 08/26/2024 9:38 AM EDT [facility] Stool Culture NO SALMONELLA, SHIGELLA OR CAMPYLOBACTER ISOLATED 08/27/2024 8:45 AM EDT [facility] Stool (Stool) 08/26/2024 7:4 5 AM EDT 08/26/2024 9:40 AM EDT us Sabiha Lopez NP MICROBIOLOGY - GENERAL ORD ERABLES Final Result Performing Organization Address City/[facility]/ZIP Co de Phone Number [address] [address] * TSH with reflex (08/25/2024 11:53 AM EDT) Pathologist [facility] TSH 1.20 0.27 - 4.20 uIU/mL [facility] Blood 08/25/2024 11:5 3 AM EDT 08/25/2024 11:58 AM EDT us Sabiha Lopez NP LAB BLOOD ORDERABLES Final Result Performing Organization Address [facility]/ZIP Co de Phone Number [address] [address] * Sedimentation rate (ESR) (08/25/2024 11:53 AM EDT) Pathologist [facility] ESR 6 0 - 20 mm/h [facility] Blood 08/25/2024 11:5 3 AM EDT 08/25/2024 11:58 AM EDT us Sabiha Lopez NP LAB BLOOD ORDERABLES Final Result Performing Organization Address [facility] Co de Phone Number [address] [address] * (ABNORMAL) C-Reactive Protein (08/25/2024 11:53 AM EDT) C REACTIVE PROTEIN 4.1(H) 0.0 - 4.0 mg/L [facility] Blood 08/25/2024 11:5 3 AM EDT 08/25/2024 11:58 AM EDT us Sabiha Lopez SOURCING ASSISTANT LAB BLOOD ORDERABLES Final Result [facility] [address] [place] [address] from Last 3 Months Insurance O Member Subscriber Plan / Payer (Ef fective 2018-Present) Name:Ga Wills Relation to Subscriber:Spouse Name:JULITO WILLS Date of :1962 Address: [address] [place] [address] Payer ID:Not on file Type:O Address: [address] [facility] [address] [place], [place] [address]O [facility] [address] [place], [place] [address] [place], [place] [address] Care Teams Pig Handler Relationship Specialty Start Date End Date Torres Snow MD [address] [place] [address] [place] PCP - General Internal Medicine 03/22/20 Additional Source Comments The information contained in this document represents components of the legal health record. It is not the complete legal health record.[facility]
--- OUTSIDE RECORDS SUMMARY | 2024-11-22 15:50 | XMS_ITS | Patient Health Record ---
Author Organization [facility] Address [address] [place] [address] Care Team Providers Care Director Compensation Name Role Phone Edy (RETIRED) Torres HASTINGS Primary Care Provide Oliverio Ortega Jr Unavailable Allergies No Known Allergies Reason [...] Problem Status W/U Status Risk Notes Problem [id number] Colon cancer screening (Z12.11) Active confirmed Problem [id number] Encounter for other preprocedural examination (Z01.818) Active confirmed Plan Of Treatment Future Test Test Name Order Date COLONOSCOPY 04/05/2021 Insurance Providers Payer Name Payer Address Payer Phone Subscriber Number Group Number Insured Name Patient Relationship to Insured Coverage Start Date Coverage End Date [facility] [address] [facility] [place] [phone] [id number] AARON WILLS Self - patient is the insured Medical (General) History Medical History History ICD Code Gastroesophageal reflux disease without esophagitis hypertension Environmental allergies Surgical History Surgery Date(Month/Year)
== END 2024-11-22 15:41 | disposition home or self-care (01) ==
LOC: HO.HCS 15:16
PROVIDERS: PCP Internal Medicine; Visit Provider Internal Medicine Cardiovascular Disease
DX: I48.0 Paroxysmal atrial fibrillation (principal); I35.0 Nonrheumatic aortic (valve) stenosis
CPT/HCPCS: 93010; 99214

== ENCOUNTER → 2024-11-22 15:14 | Outpatient (BNVA) | payer BC, SELFPAY | PROVIDERS: PCP Internal Medicine; Visit Provider Internal Medicine Cardiovascular Disease | DX: I48.0 Paroxysmal atrial fibrillation (principal) | CPT/HCPCS: 93005 ==

== ENCOUNTER 2024-12-03 08:42 | Outpatient (AMB) | payer BC, SELFPAY ==
--- NOTE | 2024-12-03 08:50 | AM.OFFVISNUR ---
Intake Visit Reasons: 2 wk on flecanide Allergies No Known Allergies Allergy (Verified 11/10/24 15:27) Nursing Note pt is here for nurse llanes with ekg pt is on flecainide 100 mg PO Q12H ekg left on Dr Baldwin's desk for review Office Procedures EKG [id number], Complete Coding CPT Codes EKG - CPT: 32296-[id number], Complete ([id number])
--- OUTSIDE RECORDS SUMMARY | 2024-12-03 08:55 | XMS_ITS | Patient Health Record ---
Author Organization [facility] Address [address] [place] [address] Care Team Providers Care Manager Of Application Development Name Role Phone Edy (RETIRED) Torres HASTINGS [...] Problem Status W/U Status Risk Notes Problem [id number] Colon cancer screening (Z12.11) Active confirmed Problem [id number] Encounter for other preprocedural examination (Z01.818) Active confirmed Plan Of Treatment Future Test Test Name Order Date COLONOSCOPY 04/05/2021 Insurance Providers Payer Name Payer Address Payer Phone Subscriber Number Group Number Insured Name Patient Relationship to Insured Coverage Start Date Coverage End Date [facility] [address] [facility] [place] [phone] [id number] AARON WILLS Self - patient is the insured Medical (General) History Medical History History ICD Code Gastroesophageal reflux disease without esophagitis hypertension Environmental allergies Surgical History Surgery Date(Month/Year)
--- OUTSIDE RECORDS SUMMARY | 2024-12-03 08:55 | XMS_ITS | Clinical Summary ---
Author Organization [facility] Address [address] [place] [address] Phone Care Team Providers Care Can Crimper Name Role Phone Torres Snow MD Primary [...] Active Active Problems No known active problems Social History Tobacco Use Types Packs/Day Years [...] VACCINES (1 of 2) 10/19/2011 COVID-19 VACCINE (4 - 2023-2 5 season) 2024 04/03/2021, 09/11/2020, 08/14/2020 TSH [...] Procedure Name Priority Date/Time Associated Diagnosis Comments TSH WITH REFLEX Routine 08/25/2024 11:53 AM EDT Diarrhea, unspecified type from Last 3 Months or Most Recently Relevant to Health Maintenance Results * TSH with reflex (08/25/2024 11:53 AM EDT) TSH 1.20 0.27 - 4.20 uIU/mL [facility] Blood 08/25/2024 11:5 3 AM EDT 08/25/2024 11:58 AM EDT us Sabiha Lopez MICA PLATE LAYER HAND LAB BLOOD ORDERABLES Final Result [facility] [address] [place] [address] from Last 3 Months or Most Recently Relevant to Health Maintenance Insurance O O [facility] [place] [address] [place], [place] [address]O O [facility] O [facility] Member Subscriber Plan / Payer (Ef fective 2018-Present) Name:JohannGa Relation to Subscriber:Spouse Name:JOHANN,MARY Date of :1961 Address: [address] [place] [address] Payer ID:Not on file Type:HMO Address: ONE [address] [place], [place] [address]O [facility] HMO [facility] Care Teams Can Crimper Relationship Specialty Start Date End Date Torres Snow MD [address] [place] [address] PCP - General Internal Medicine 03/22/20 Additional Source Comments The information contained in this document represents components of the legal health record. It is not the complete legal health record.[facility]
== END 2024-12-03 10:06 | disposition home or self-care (01) ==
LOC: HO.HCS 08:42
PROVIDERS: PCP Internal Medicine; Visit Provider Internal Medicine Cardiovascular Disease
DX: I44.0 Atrioventricular block, first degree (principal); R00.1 Bradycardia, unspecified
CPT/HCPCS: 93010

== ENCOUNTER → 2024-12-03 08:42 | Outpatient (BNVA) | payer BC, SELFPAY | PROVIDERS: PCP Internal Medicine; Visit Provider Internal Medicine Cardiovascular Disease | DX: Z79.899 Other long term (current) drug therapy (principal) | CPT/HCPCS: 93005 ==

== ENCOUNTER → 2025-01-04 10:13 | Outpatient (REF) | payer BC, SELFPAY ==
--- NOTE | 2025-01-04 10:15 | HM_ITS ---
Conclusion: 1. Patient was monitored for total period of 3 days 2. Baseline was normal sinus rhythm with average heart of 57 beats per minute 3. No significant pauses noted but frequent sinus bradycardia noted with 76.5% of time heart rate below 60 beats per minute 4. No significant arrhythmias or atrial fibrillation noted 5. No patient reported events MTDD
--- OUTSIDE RECORDS SUMMARY | 2025-01-04 11:40 | XMS_ITS | Clinical Summary ---
Author Organization [facility] Address [address] [place] [address] Phone Care Team Providers Care Scaler Packer Name Role Phone Torres Snow MD Primary [...] EDT) TSH 1.20 0.27 - 4.20 uIU/mL [facility] Blood 08/25/2024 11:5 3 AM EDT 08/25/2024 11:58 AM EDT us Sabiha Lopez MANGANESE BREAKER LAB BLOOD ORDERABLES Final Result [facility] [address] [place] [address] from Last 3 Months or Most Recently Relevant to Health Maintenance Insurance O O [facility] [address] [place], [place] [address]O O [facility] O [facility] [place] Member Subscriber Plan / Payer (Ef fective 2018-Present) Name:JohannGa Relation to Subscriber:Spouse Name:JOHANN,MARY Date of :1961 Address: [address] [place] [address] Payer ID:Not on file Type:HMO Address: ONE [address] [place], [place] [address]O [facility] HMO [facility] Care Teams Scaler Packer Relationship Specialty Start Date End Date Torres Snow MD [address] [place] [address] PCP - General Internal Medicine 03/22/20 Additional Source Comments The information contained in this document represents components of the legal health record. It is not the complete legal health record.[facility]
--- OUTSIDE RECORDS SUMMARY | 2025-01-04 11:40 | XMS_ITS | Patient Health Record ---
Author Organization [facility] Address [address] [place] [address] Care Team Providers Care Detail Drafter Name Role Phone Edy (RETIRED) Torres HASTINGS [...] Problem Status W/U Status Risk Notes Problem [id number] Colon cancer screening (Z12.11) Active confirmed Problem [id number] Encounter for other preprocedural examination (Z01.818) Active confirmed Plan Of Treatment Future Test Test Name Order Date COLONOSCOPY 04/05/2021 Insurance Providers Payer Name Payer Address Payer Phone Subscriber Number Group Number Insured Name Patient Relationship to Insured Coverage Start Date Coverage End Date [facility] [address] [facility] [place] [phone] [id number] AARON WILLS Self - patient is the insured Medical (General) History Medical History History ICD Code Gastroesophageal reflux disease without esophagitis hypertension Environmental allergies Surgical History Surgery Date(Month/Year)
== END ==
LOC: HO.CARD 10:13
PROVIDERS: Visit Provider Internal Medicine Cardiovascular Disease
DX: I48.0 Paroxysmal atrial fibrillation (principal); R00.1 Bradycardia, unspecified
CPT/HCPCS: 93242

== ENCOUNTER → 2025-01-04 10:15 | Outpatient (BNV) | payer BC, SELFPAY | PROVIDERS: Visit Provider Internal Medicine Cardiovascular Disease | DX: I48.0 Paroxysmal atrial fibrillation (principal) | CPT/HCPCS: 93244 ==

== ENCOUNTER 2025-03-07 14:41 | Outpatient (AMB) | payer BC, SELFPAY ==
[2025-03-07 08:07] VITALS: BP 126/78; PULSE 57; TEMP 36.2; O2SAT 98; BMI 27.9
--- NOTE | 2025-03-07 08:07 | MHC.PC.OV ---
Vital Signs 03/07/25 08:07 Height 5 ft 7 in Weight 178 lb 6 oz BMI 27.9 BP 126/78 Blood Pressure Location Lt brachial Position Sitting Pulse 57 Pulse Source Pulse Oximeter Temp 97.2 F Temp Source Temporal Artery Scan Pulse Oximetry (%) 98 Oxygen Delivery Method Room Air Intake Visit Reasons: meds/Dr. Reeves Computator Required: No Accompanied by: Self / Same As Patient Allergies No Known Allergies Allergy (Verified 03/07/25 08:07) Tobacco use date assessed: 03/07/25 Dental Screening Dental Screen Date: 03/07/25 Did you have a dental visit in the last 12 months?: Yes Did you have a dental problem in the last 6 months where you did not have access to dental care?: No HPI HPI Comments History of Present Illness Details The patient is a 64-year-old male presenting for follow-up and management of chronic conditions. He has a history of atrial fibrillation and underwent a successful ablation almost two years ago, remaining in sinus rhythm since. He continues on flecainide 100 mg twice a day and metoprolol 12.5 mg for preventative purposes. He was previously on amiodarone. A recent cardiology evaluation included a normal Holter monitor and an echocardiogram showing a normal ejection fraction of 64% with a new finding of mild aortic stenosis. The patient is asymptomatic, denying chest pain or shortness of breath. The patient has a history of hypertension, for which he takes losartan. His last cholesterol check in November of the previous year showed an LDL of 106 and total cholesterol of 170, and he is not on any cholesterol medication. There is a long-standing history of mild elevation in liver enzymes, with an AST of 40 and ALT of 79, dating back to 2018. His thyroid function was checked in June of this year and was normal with a TSH of 0.9. The patient reports being active but is experiencing increasing difficulty with walking due to hip pain. Imaging from 5009-2228 confirmed mild to moderate osteoarthritis of both hips. Medical History: - Atrial fibrillation, status post ablation - Aortic stenosis, mild - Hypertension - Hyperlipidemia - Elevated liver enzymes, chronic - Osteoarthritis of bilateral hips Surgical History: - Atrial fibrillation ablation (approximately 2 years ago) Medications: - Flecainide 100 mg twice daily for atrial fibrillation - Metoprolol 12.5 mg for atrial fibrillation - Losartan for hypertension Diagnostic Results: - Labs: - LDL cholesterol: 106 mg/dL (November last year) - Total cholesterol: 170 mg/dL (November year) - TSH: 0.9 (June year) - AST: 40 (normal < 37) - ALT: 79 (normal < 40) - Tests and Diagnostics: - Holter monitor: Normal (recent) - Echocardiogram: Ejection fraction 64%, mild aortic stenosis (recent) - Hip imaging ([id number]): Mild to moderate osteoarthritis of both hips Social History: - 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 - Exercise: Reports being fairly active and considers himself an athlete. - Functional Status: Enjoys walking and swimming, but walking has become difficult due to hip pain. [facility] Medical History Paroxysmal atrial fibrillation Persistent atrial fibrillation GERD (gastroesophageal reflux disease) HTN (hypertension) Surgical History Hx of colonoscopy (~05/08/21) Family History (Updated 03/07/25 @ 14:49 by Ana Ford MA) Mother No problems noted. Father No problems noted. 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 1. Little interest or pleasure in doing things: not at all 2. Feeling down, depressed, or hopeless: not at all 3. Trouble falling or staying asleep, or sleeping too much: not at all 4. Feeling tired or having little energy: not at all 5. Poor appetite or overeating: not at all 6. Feeling bad about yourself - or that you are a failure or have let yourself or your family down: not at all 7. Trouble concentrating on things, such as reading the newspaper or watching television: not at all 8. Moving or speaking so slowly that other people could have noticed. Or the opposite - being so fidgety or restless that you have been moving around a lot more than usual: not at all 9. Thoughts that you would be better off or of hurting yourself in some way: not at all Total score: 0 Source: Developed by Drs. Bjorn Ocampo, Jessica Andrews, Yogi Rico and colleagues, with an educational jason from [employer]. Thrive Questionnaire Date Thrive assessed: 03/07/25 I am a: Patient Within the past 12 months, did the food you bought not last and you didn't have the money to get more?: Never true Within the past 12 months, did you worry whether your food would run out before you got money to buy more?: Never true Do you have trouble paying for medicines?: No Do you have trouble getting transportation to medical appointments?: No Do you have trouble paying your heating and electricity bill?: No Do you have trouble taking care of your child, family member or friend?: No Do you have trouble with day-to-day activities such as bathing, preparing meals, shopping, managing finances, etc.?: No Are you currently unemployed and looking for a job?: No Are you interested in more education?: No THRIVE Score: 0 AUDIT C Alcohol Use Questionnaire (AUDIT-C) 1. How often do you have a drink containing alcohol?: Monthly or less 2. How many drinks containing alcohol do you have on a typical day when you are drinking?: 1 or 2 3. How often do you have six or more drinks on one occasion?: Less than monthly Total Score: 2 GAMALIEL-7 AMB Questionnaire GAMALIEL-7 Date GAMALIEL - 7 assessed: 03/07/25 Feeling nervous, anxious, or on edge: 0 = Not at all Not being able to stop or control worryin = Not at all Worrying too much about different things: 0 = Not at all Trouble relaxin = Not at all Being so restless that it is hard to sit still: 0 = Not at all Becoming easily annoyed or irritable: 0 = Not at all Feeling afraid as if something awful might happen: 0 = Not at all Total GAMALIEL-7 score (0-4 normal; 5-9 mild; 10-14 moderate; 15-21 severe): 0 Source: Developed by Jessica MichaelsW. Darryl, Yogi Rico and colleagues, with an educational jason from [employer]. Review of Systems Narrative - General: Denies any current complaints. - Cardiovascular: Denies chest pain and shortness of breath. - Musculoskeletal: Reports bilateral hip pain that has made walking difficult and is getting worse. All systems reviewed & are unremarkable except as reviewed in HPI and above Physical exam (Primary Care) Vital Signs: Last Vital Signs Temp 97.2 F 03/07/25 08:07 Pulse 57 03/07/25 08:07 BP 126/78 03/07/25 08:07 Pulse Ox 98 03/07/25 08:07 Oxygen Delivery Method Room Air 03/07/25 08:07 BMI result Body Mass Index 27.9 Tobacco/Smoking Status: Tobacco use Status Tobacco use date assessed 03/07/25 03/07/25 08:08 Patient Tobacco Use Status Never used Tobacco 03/07/25 08:08 e-Cigarette/Vaping Use Never Used 03/07/25 08:08 PHQ-9: PHQ-9 Score PHQ-9: Total score 0 03/07/25 14:49 Thrive Assessment: Date of Thrive Assessment Date Thrive assessed 03/07/25 03/07/25 08:08 Narrative General: Alert and oriented, Well nourished, No acute distress. Eye: Pupils are equal, round and reactive to light, Intact accommodation, Extraocular movements are intact, Normal conjunctiva, Vision unchanged. HENT: Normocephalic, Atraumatic, Tympanic membranes are clear, Normal hearing, Oral mucosa is moist, No pharyngeal erythema, Ear canals patent. Respiratory: Lungs CTA bilaterally, No wheeze, Respirations are non-labored. Cardiovascular: Regular rate, Regular rhythm, S1 auscultated, S2 auscultated, No murmur, Good pulses equal in all extremities, Normal peripheral perfusion, No edema. Gastrointestinal: Soft, Non-tender, Non-distended, Normal bowel sounds, No organomegaly. Musculoskeletal: Normal range of motion, Normal strength, No tenderness, No swelling, No deformity, Normal gait. Integumentary: Warm, Dry, [place], Intact. Neurologic: Alert, Oriented, Normal sensory, Normal motor function, No focal defects, Cranial Nerves II-XII are grossly intact, Normal deep tendon reflexes. Psychiatric: Cooperative, Appropriate mood & affect, Normal judgment. Coding Level of Care Code Est Pt Level 4 (77646) Complex EM visit Add On G2211 Diagnoses Paroxysmal atrial fibrillation I48.0 Nonrheumatic aortic valve stenosis I35.0 Cardiac valve disease etiology: nonrheumatic Primary hypertension I10 Hypertension type: primary hypertension Elevated liver enzymes R74.8 Osteoarthritis of right hip, unspecified osteoarthritis type M16.11 Osteoarthritis type: unspecified Assessment & Plan Assessment & Plan (1) Paroxysmal atrial fibrillation: Comment: - Patient is stable and in sinus rhythm, status post successful ablation. - Holter monitor reviewed from January 2025 and unremarkable. - He will continue his current regimen of flecainide 100 mg twice daily and metoprolol 12.5 mg for prevention. Code(s): I48.0 - Paroxysmal atrial fibrillation Category: Medical (2) Aortic stenosis: Comment: - The patient is asymptomatic. - This is a new finding from a recent echocardiogram. (Reviewed from November 2024) - The plan is to continue monitoring with no intervention at this time. Code(s): I35.0 - Nonrheumatic aortic (valve) stenosis Category: Medical Qualifiers: Cardiac valve disease etiology: nonrheumatic Qualified Code(s): I35.0 - Nonrheumatic aortic (valve) stenosis (3) HTN (hypertension): Comment: - The patient is on losartan for hypertension. - Pressures stable today 126/78 Code(s): I10 - Essential (primary) hypertension Category: Medical Qualifiers: Hypertension type: primary hypertension Qualified Code(s): I10 - Essential (primary) hypertension (4) Elevated liver enzymes: Comment: - This is a long-standing, stable, mild elevation. - To investigate further, a hepatitis panel will be ordered with his next labs. - If negative, a liver ultrasound will be obtained to assess for fatty liver. Code(s): R74.8 - Abnormal levels of other serum enzymes Category: Medical (5) Osteoarthritis of right hip: Comment: - The patient's pain is worsening and limiting his ability to walk. - An X-ray of both hips has been ordered to assess for progression. - Discussed conservative management, including staying active, using Tylenol as needed, and trying ooum-vxv-ulgeiic glucosamine chondroitin. - Advised that joint replacement is not an immediate consideration. Code(s): M16.11 - Unilateral primary osteoarthritis, right hip Category: Medical Qualifiers: Osteoarthritis type: unspecified Qualified Code(s): M16.11 - Unilateral primary osteoarthritis, right hip Plan: Health Maintenance: - Plan for an annual physical exam in 3 months (around June). - Labs to be drawn a week before the next visit include: cholesterol panel, thyroid panel, electrolytes/sugar, vitamin D level, and a hepatitis panel. - Age-appropriate cancer screenings will be discussed at the next visit. - Encouraged continued physical activity while being mindful of hip pain. - Recommended tliu-rkk-ikckuya glucosamine for joint health. Patient was informed and verbally consented to the use of an ambient scribe for clinic note documentation during this visit. Plan I reviewed the patient's recent cardiology results, explaining that the echocardiogram showed mild aortic stenosis which is asymptomatic and currently only requires monitoring. We discussed his stable history of atrial fibrillation post-ablation, and I confirmed my agreement with continuing flecainide and metoprolol as a preventative measure. I explained that based on his risk factors, his cholesterol level from last year is elevated, and we will plan to re-evaluate with new labs in 3 months before deciding on starting medication. I also outlined a diagnostic plan for his chronically elevated liver enzymes, which will begin with a hepatitis panel and may be followed by a liver ultrasound if the panel is negative. Regarding his worsening bilateral hip pain, I recommended conservative management with supplements and continued activity, and advised that we should assess for progression with new X-rays before considering more invasive options like joint replacement. I have placed orders for bilateral hip X-rays and labs for his follow-up appointment in 3 months. Orders: Orders Comprehensive Met. Panel 3 Months Z00.00 - Encounter for general adult medical examination without abnormal findings Hemoglobin A1c 3 Months Z00.00 - Encounter for general adult medical examination without abnormal findings Lipid Panel 3 Months Z00.00 - Encounter for general adult medical examination without abnormal findings Syphilis Screen 3 Months Z00.00 - Encounter for general adult medical examination without abnormal findings Complete Blood Count Auto Diff 3 Months Z00.00 - Encounter for general adult medical examination without abnormal findings Hepatitis A,B,C Profile 3 Months Z00.00 - Encounter for general adult medical examination without abnormal findings HIV Ab/Ag 3 Months Z00.00 - Encounter for general adult medical examination without abnormal findings TSH reflex Free T4 3 Months Z00.00 - Encounter for general adult medical examination without abnormal findings Vitamin D 25-OH Total 3 Months Z00.00 - Encounter for general adult medical examination without abnormal findings XR hip BI w PEL1V Today M16.11 - Unilateral primary osteoarthritis, right hip Patient Instructions: - Continue taking your current medications as prescribed, including flecainide, metoprolol, and losartan. - You may go to the radiology department to get an X-ray of both of your hips at your convenience. - Consider taking an sebu-gjz-kusqmgf supplement such as glucosamine for your joint health. - You may use Tylenol as needed for hip pain, but do not use it excessively. - It is important to stay active; swimming may be a good option that is easier on your hips. - Please schedule a follow-up appointment in about 3 months for your annual physical. - About one week before your next appointment, please go to the lab to have blood work done.
== END 2025-03-07 15:10 | disposition home or self-care (01) ==
LOC: HO.HMCHD 14:42
PROVIDERS: Visit Provider Student in an Organized Health Care Education/Training Program
DX: I48.0 Paroxysmal atrial fibrillation (principal); I35.0 Nonrheumatic aortic (valve) stenosis; I10 Essential (primary) hypertension; R74.8 Abnormal levels of other serum enzymes; M16.11 Unilateral primary osteoarthritis, right hip

== ENCOUNTER 2025-03-09 13:17 | Outpatient (REF) | payer BC, SELFPAY ==
--- NOTE | ~2025-03-09 | XR_ITS ---
EXAMINATION: XR BILATERAL HIPS WITH AP PELVIS CLINICAL INFORMATION: M16.11 - Unilateral primary osteoarthritis, right hip COMPARISON: General 2022 TECHNIQUE: AP and frog-leg lateral views of each hip and an AP view of the pelvis. FINDINGS: Pelvis demonstrates an accessory ossification center lateral to the acetabular roof. SI joints are symmetrical and minimally degenerated. No acute fracture is demonstrated. Right hip demonstrates a bony convexity at the femoral head neck junction. There is subtle superior lateral hip joint space narrowing. Left hip demonstrates subtle superior lateral hip joint space narrowing and small acetabular roof osteophyte. 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 Minimal degenerative change. Mild left hip osteoarthritis. Electronically signed by: Jonnathan Brenner MD 03/09/2025 02:16 PM JAVIER
--- OUTSIDE RECORDS SUMMARY | 2025-03-09 16:05 | XMS_ITS | Patient Health Record ---
Author Organization [facility] Address [address] [place] [address] Care Team Providers Care Senior User Experience Architect Name Role Phone Edy (RETIRED) Torres HASTINGS [...] at 5:00 p.m. the day before the procedure; Duration: 1 day 04/05/2021 Active Immunizations Vaccine Route [...] Problem Status W/U Status Risk Notes Problem Colon cancer screening (426239077) Colon cancer screening (Z12.11) Active confirmed Problem Pre-procedure evaluation check (853150855) Encounter for other preprocedural examination (Z01.818) Active confirmed Plan Of Treatment Future Test Test Name Order Date COLONOSCOPY 04/05/2021 Insurance Providers Payer Name Payer Address Payer Phone Subscriber Number Group Number Insured Name Patient Relationship to Insured Coverage Start Date Coverage End Date [facility] [address] [place] [phone] [id number] AARON WILLS Self - patient is the insured Medical (General) History Medical History History ICD Code Gastroesophageal reflux disease without esophagitis hypertension Environmental allergies Surgical History Surgery Date(Month/Year)
--- OUTSIDE RECORDS SUMMARY | 2025-03-09 16:05 | XMS_ITS | Clinical Summary ---
Author Organization [facility] Address [address] [place] [address] Phone Care Team Providers Care Pellet Press Operator Name Role Phone Torres Snow MD [...] 2006 ZOSTER VACCINES (1 of 2) 10/19/2011 INFLUENZA VACCINE (#1) 2024 , 04/03/2021 COVID-19 VACCINE (2024-2 6 season) 2025 04/03/2021, 09/11/2020, 08/14/2020 TSH LEVEL 08/25/2025 08/25/2024 [...] EDT) TSH 1.20 0.27 - 4.20 uIU/mL [facility] Blood 08/25/2024 11:5 3 AM EDT 08/25/2024 11:58 AM EDT us Sabiha Lopez TOOL GRINDER OPERATOR SURFACE LAB BLOOD BKR ORDERABLES F inal Result [facility] [address] [place] [address] from Last 3 Months or Most Recently Relevant to Health Maintenance Insurance [facility] [place] Address: [address] [facility] [address] [place], [place] [address] [place] [address] [place] [address]O [facility] Member Subscriber Plan / Payer (Ef fective 2018-Present) Name:Ga Wills Relation to Subscriber:Spouse Name:JOHANNJULITO Date of :1961 Address: [address] [place] [address] Payer ID:Not on file Type:HMO Address: ONE [address] [place], [place] [address] Member Subscriber Plan / Payer (Ef fective 2018-Present) Name:Ga Wills Relation to Subscriber:Spouse Name:JOHANN,MARY Date of :1961 Address: [address] [place] [address] Payer ID:Not on file Type:HMO Address: [address] [facility] [place] [place] Address: [id number] [place] [address] Care Teams Pellet Press Operator Relationship Specialty Start Date End Date Torres Snow MD [address] [place] [address] PCP - General Internal Medicine 03/22/20 Additional Source Comments The information contained in this document represents components of the legal health record. It is not the complete legal health record.[facility]
== END 2025-03-09 13:18 | disposition home or self-care (01) ==
LOC: HO.XRAY 13:17
PROVIDERS: PCP Student in an Organized Health Care Education/Training Program; Visit Provider Student in an Organized Health Care Education/Training Program
DX: M16.11 Unilateral primary osteoarthritis, right hip (principal)
CPT/HCPCS: 73521

== ENCOUNTER → 2025-03-09 13:23 | Outpatient (BNV) | payer BC, SELFPAY | PROVIDERS: PCP Student in an Organized Health Care Education/Training Program; Visit Provider Radiology Diagnostic Radiology | DX: M16.12 Unilateral primary osteoarthritis, left hip (principal) | CPT/HCPCS: 73521 ==